=== PATIENT | male | born 1950 | race Caucasian/White ===

== ENCOUNTER 2019-09-03 08:10 | Outpatient (CLI) | payer OTHER, SELFPAY | END 2019-09-03 08:11 | disposition home or self-care (01) | LOC: RT 08:16 | PROVIDERS: Family Provider Family Medicine; PCP Family Medicine; Visit Provider Family Medicine | DX: Z76.89 Persons encountering health services in other specified circumstances (principal) ==

== ENCOUNTER 2022-02-19 13:25 | Inpatient (IN) | payer MEDICARE, SELFPAY ==
[2022-02-19] VITALS (59 sets, daily range): BP systolic 77–173; BP diastolic 61–119; PULSE 82–132; RESP 9–29; TEMP 36.4–36.8; O2SAT 89–99; BMI 32.8
--- NOTE | 2022-02-19 14:04 | ECG_ITS ---
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 Measurements Intervals [place] Rate: 110 P: 62 SD: 168 QRS: -10 QRSD: 103 T: 124 QT: 313 QTc: 425 Interpretive Statements SINUS TACHYCARDIA ST DEVIATION AND MODERATE T-WAVE ABNORMALITY, CONSIDER LATERAL ISCHEMIA [-0.1+ mV T-WAVE IN I/aVL/V5/V6] No previous ECG available for comparison Electronically Signed On 02-19-2022 15:10:06 CDT by Yadira Grant M.D. [id number] f
--- NOTE | 2022-02-19 14:09 | XR_ITS ---
WS: [id number] Exam: XR chest 1V portable [id number] Date/Time of Exam: 02/19/2022 2:09 PM Reason For Exam: cp Comparison 01/11/2008. There is cardiac enlargement with pulmonary vascular congestion suggesting acute CHF. There are areas of plaque atelectasis noted in both lungs. No pleural effusion. Signs of previous CABG surgery. Tiffany onal bony elements are intact. The mediastinal silhouette is unremarkable for technique. XR/XR chest 1V portable [id number] IMPRESSION: 1. Cardiac enlargement with pulmonary vascular congestion suggesting CHF.
--- NOTE | 2022-02-19 14:25 | CT_ITS ---
WS: [id number] CT CHEST ANGIOGRAPHY WITH REFORMATS HISTORY: chest pain, severe TECHNIQUE: Contiguous axial images are obtained through the chest during arterial injection of intrav enous contrast. Images are reconstructed to evaluate the pulmonary arteries. MIP imaging also reviewe d. All CT scans at [facility] use at least one of these dose optimization techniques: automat ed exposure control; mA and/or kV adjustment per patient size (includes targeted exams where dose is matched to clinical indication); or iterative reconstruction. CONTRAST: Omnipaque 350; 90 mL IV. DLP: 759.37 mGy.cm COMPARISON: None available. Adequate opacification of the central pulmonary arteries. No central pulmonary embolism. Beyond the s egmental branches the opacification is limited due to airspace disease. Marked enlargement of the LEF T heart chambers. Mild atherosclerosis aorta. Prior CABG. Extensive breathing motion artifact. Bilateral groundglass attenuation and consolidations. Consolidat ions are greatest at the lung bases. No pneumothorax. Small, mediastinal and hilar lymph nodes. Tricuspid regurgitation into the proximal hepatic veins. Mi ld bilateral perinephric stranding is probably chronic. No osseous destruction. CT/CT angio chest PE protcl [id number] IMPRESSION: 1. No pulmonary embolism. 2. Diffuse bilateral pulmonary opacifications. Pneumonitis and pulmonary vascu lar congestion within the differential. 3. Markedly enlarged LEFT heart chambers. 4. Prior CABG.
--- NOTE | 2022-02-19 14:28 | ECG_ITS ---
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 Measurements Intervals [place] Rate: 117 P: 47 MD: 189 QRS: -15 QRSD: 114 T: 131 QT: 307 QTc: 430 Interpretive Statements SINUS TACHYCARDIA MODERATE INTRAVENTRICULAR CONDUCTION DELAY [110+ ms QRS DURATION] ST DEVIATION AND MODERATE T-WAVE ABNORMALITY, CONSIDER LATERAL ISCHEMIA [-0.1+ mV T-WAVE IN I/aVL/V5/V6] No previous ECG available for comparison Electronically Signed On 02-19-2022 15:09:33 CDT by Yadira Grant M.D. [id number]
[2022-02-19] MEDS: diphenhydrAMINE 50 mg/mL SDV 1mL IVP (14:34)
--- NOTE | 2022-02-19 14:37 | W.ED.GENADLT ---
HPI - General Adult General: Chief complaint: Chest Pain Stated complaint: Chest pains, Stomach pains Time Seen by Provider: 02/19/22 14:10 History of Present Illness: Patient is a 71-year-old male with history of extensive CAD presenting to the emergency room with complaints of chest pain for the last 3 days. Patient tells me that he has been having intermittent chest pain has not acutely worsened in the last 3 days. In addition patient reports cough and shortness of breath. Patient denies any fever/chills, body ache, diarrhea melena hematochezia. No complaints of abdominal pain. Onset:3 days ago Duration:3 days Location:home Severity:moderate Associated symptoms: Reports chest pain and dyspnea; Deny nausea, rash, palpitations or vomiting Review of Systems Const: Denies: fever(s) or chills Eyes: Denies: change in vision ENMT: Denies: mouth pain Card: Reports: chest pain; Denies: palpitations Resp: Reports: dyspnea and non-productive cough GI: Denies: abdominal pain, nausea, vomiting or diarrhea : Denies: dysuria Musc: Denies: extremity pain Skin/Breast: Denies: rash or new lesions Neuro: Denies: weakness in extremities Psych: Reports: other (Normal mood) Chirag/Lymph: Denies: easy bruising PFSH ED PFSH: Medical History (Updated 02/19/22 @ 15:30 by Yohan Burch MD) CAD (coronary artery disease) Social History (Updated 02/19/22 @ 14:40 by Yohan Burch MD) Smoking and tobacco status: current every day smoker Alcohol intake: never Substance/Drug Use: never Physical Exam Const: COMMON NORMALS: alert HENMT: COMMON NORMALS: atraumatic HEAD & SCALP: atraumatic MOUTH: moist mucous membranes not abnormal Eye: COMMON NORMALS: EOMs intact bilaterally and conjunctivae normal CONJUNCTIVA: Yes conjunctivae normal Neck/C-Spine: COMMON NORMALS: full ROM and supple Resp: OTHER: + Coarse breath sounds with fine crackles bilaterally throughout the lung stein, mild increased work of breathing Cardio: RATE: tachycardic GI: COMMON NORMALS: Soft to palpation and non-tender PALPATION: Yes Soft to palpation OTHER: +Abdominal distension. No focal TTP. NO guarding rebound, guarding, rigidity. No CVA tenderness to percussion. Neg Encarnacion/Neg McBurney's point tenderness, no suprabupic tenderness to palpation. Extremity: COMMON NORMALS: full ROM OTHER: 1+ lower extremity edema bilaterally Neuro: SENSORIUM/ORIENTATION: Yes alert MOTOR EXAM: No Abnormal motor strength present and Other motor observations present (no focal motor deficits) Psych: COMMON NORMALS: speech normal SPEECH: Yes normal speech MOOD & AFFECT: Yes euthymic mood Course Vital Signs: Vital signs: Vital Signs Temperature 98.2 F 02/19/22 13:35 Pulse Rate 123 H 02/19/22 15:45 Respiratory Rate 18 02/19/22 15:45 Blood Pressure 98/74 02/19/22 15:45 Pulse Oximetry 96 02/19/22 15:45 Oxygen Delivery Me thod 02/19/22 15:20 Fraction of Inspir ed Oxygen 80 02/19/22 15:20 MDM - General Adult Medical Decision Making 71-year-old male with history of CHF, CAD with recent stent from 1 month ago presenting to the emergency room for evaluation of acute shortness of breath and chest pain for last 3 days. On physical exam, patient was noted to be satting at 88% on room air. No prior use of oxygen. Patient has coarse diffuse crackles throughout the lung stein and 1+ b/l lower EXTR edema consistent with CHF exacerbation. Given tachycardia and hypoxemia, decision was made to evaluate for pulmonary embolism. Shortly after getting a CTA, patient was noted to be in severe respiratory distress with heart rate in the 140s. Patient has significant increased work of breathing. We suspect the patient went into flash pulmonary edema from the contrast study. CTA is negative for any signs of large PE. COVID antigen negative. Patient was placed on BiPAP and a nitro drip. Patient received 100 mg of Lasix. Patient reports feeling significantly improved. Troponin of 98. proBNP of 2487. I discussed case with Dr. Thompson who will evaluate patient at bedside. Disposition: ICU Lab Data : 02/19/22 14:23 02/19/22 14:23 Radiology Impressions Chest X-Ray 02/19/22 14:09 IMPRESSION: 1. Cardiac enlargement with pulmonary vascular congestion suggesting CHF. Chest CTA 02/19/22 14:25 IMPRESSION: 1. No pulmonary embolism. 2. Diffuse bilateral pulmonary opacifications. Pneumonitis and pulmonary vascular congestion within the differential. 3. Markedly enlarged LEFT heart chambers. 4. Prior CABG. Laboratory Results WBC 17.1 10^3/uL (4.0-10.0) H 02/19/22 14: RBC 5.59 10^6/uL (4.1-5.3) H 02/19/22 14:23 Hgb 16.0 g/dL (11.7-16.6) 02/19/22 14:23 Hct 47.6 % (42.0-52.0) 02/19/22 14:23 MCV 85.2 fl (80-94) 02/19/22 14:23 MCH 28.6 pg (28.0-34.0) 02/19/22 14: MCHC 33.6 g/dL (30.0-36.0) 02/19/22 14: RDW 13.2 % (12.1-15.1) 02/19/22 14: Plt Count 369 10^3/cmm (130-400) 02/19/22 14:23 MPV 9.4 fL (7.4-10.4) 02/19/22 14:23 Neut % (Auto) 80.5 % 02/19/22 14:23 Lymph % (Auto) 11.6 % 02/19/22 14:23 Alcorn % (Auto) 5.9 % 02/19/22 14:23 Eos % (Auto) 0.7 % 02/19/22 14:23 Baso % (Auto) 0.8 % 02/19/22 14:23 Neut # (Auto) 13.72 10^3/uL (1.8-7.7) H 02/19/22 14:23 Lymph # (Auto) 2.0 10^3/uL (0.8-4.8) 02/19/22 14:23 Alcorn # (Auto) 1.0 10^3/uL (0.2-0.9) H 02/19/22 14:23 Eos # (Auto) 0.1 10^3/uL (0.0-0.8) 02/19/22 14:23 Baso # (Auto) 0.1 10^3/uL (0.0-0.1) 02/19/22 14:23 Nucleated RBC % (auto) 0 % 02/19/22 14:23 Nucleated RBCs # 0.0 /100WBC 02/19/22 14:23 D-Dimer 0.57 ug/mIFEU (0-0.59) 02/19/22 14:23 Sodium 130 mmol/L (136-145) L 02/19/22 14:23 Potassium 4.2 mmol/L (3.5-5.1) 02/19/22 14:23 Chloride 93 mmol/L (98-107) L 02/19/22 14:23 Carbon Dioxide 21 mmol/L (22-29) L 02/19/22 14:23 Anion Gap 20.2 (5-19) H 02/19/22 14:23 BUN 16 mg/dL (8-23) 02/19/22 14:23 Creatinine 0.9 mg/dL (0.7-1.2) 02/19/22 14:23 GFR Calculation 83.7 mL/min (90-130) L 02/19/22 14:23 Glucose 225 mg/dL (65-115) H 02/19/22 14:23 Calculated Osmolality 278 mOsm/kg (285-295) L 02/19/22 14:23 Calcium 9.6 mg/dL (8.5-10.5) 02/19/22 14:23 Total Bilirubin 0.5 mg/dL (0.15-1.2) 02/19/22 14:23 AST 20 U/L (0-40) 02/19/22 14:23 ALT 19 U/L (0-41) 02/19/22 14:23 Alkaline Phosphatase 75 IU/L (40-130) 02/19/22 14:23 Troponin T Baseline 98 ng/L (0-15) H 02/19/22 14:23 NT-Pro-B Natriuret Pep 2487 pg/mL (0-125) H 02/19/22 14:23 Total Protein 7.5 g/dL (6.6-8.7) 02/19/22 14:23 Albumin 4.3 g/dL (3.5-5.2) 02/19/22 14:23 Globulin 3.2 g/dL (1.3-4.6) 02/19/22 14:23 Influenza Type A Ag Negative (Negative) 02/19/22 14:34 Influenza Type B Ag Negative (Negative) 02/19/22 14:34 SARS-CoV-2 Ag (Rapid) Negative (Negative) 02/19/22 14:34 Imaging Data Other Imaging: Radiologist's impression: [place] [address] XRay Report Signed Patient: Holden Roy Unit #: [id number] : 1950 Age/Sex: 71 / M ADM Date: 02/19/22 Loc: ER Room/Bed: Attending Dr: Ordering Provider/Ordering MD: Bentley Barksdale MD Date of Service: 02/19/22 Procedure(s): XR chest 1V portable [id number] Accession Number(s): [id number] Report Number: [id number] WS: [id number] Exam: XR chest 1V portable [id number] Date/Time of Exam: 02/19/2022 2:09 PM Reason For Exam: cp Comparison 01/11/2008. There is cardiac enlargement with pulmonary vascular congestion suggesting acute CHF. There are areas of plaque atelectasis noted in both lungs. No pleural effusion. Signs of previous CABG surgery. Regional bony elements are intact. The mediastinal silhouette is unremarkable for technique. XR/XR chest 1V portable [id number] IMPRESSION: 1. Cardiac enlargement with pulmonary vascular congestion suggesting CHF. ? Dictated By: Jordan Arevalo DO Signed By: Jordan Arevalo DO Signed Date/Time: 02/19/22 1443 DD/ [address] [place] [address] CT Scan Report Signed Patient: Holden Roy Unit #: [id number] : 1950 Age/Sex: 71 / M ADM Date: 02/19/22 Loc: ER Room/Bed: Attending Dr: Ordering Provider/Ordering MD: Yohan Burch MD Date of Service: 02/19/22 Procedure(s): CT angio chest PE protcl [id number] Accession Number(s): [id number] Report Number: [id number] WS: [id number] CT CHEST ANGIOGRAPHY WITH REFORMATS HISTORY: chest pain, severe TECHNIQUE: Contiguous axial images are obtained through the chest during arterial injection of intravenous contrast. Images are reconstructed to evaluate the pulmonary arteries. MIP imaging also reviewed.? All CT scans at [facility] use at least one of these dose optimization techniques: automated exposure control; mA and/or kV adjustment per patient size (includes targeted exams where dose is matched to clinical indication); or iterative reconstruction. CONTRAST: Omnipaque 350; 90 mL IV. DLP: 759.37 mGy.cm COMPARISON: None available. Adequate opacification of the central pulmonary arteries. No central pulmonary embolism. Beyond the segmental branches the opacification is limited due to airspace disease. Marked enlargement of the LEFT heart chambers. Mild atherosclerosis aorta. Prior CABG. Extensive breathing motion artifact. Bilateral groundglass attenuation and consolidations. Consolidations are greatest at the lung bases. No pneumothorax. Small, mediastinal and hilar lymph nodes. Tricuspid regurgitation into the proximal hepatic veins. Mild bilateral perinephric stranding is probably chronic. No osseous destruction. CT/CT angio chest PE protcl [id number] IMPRESSION: ? 1.? No pulmonary embolism. 2.? Diffuse bilateral pulmonary opacifications. Pneumonitis and pulmonary vascular congestion within the differential. 3.? Markedly enlarged LEFT heart chambers. 4.? Prior CABG. ? ? ? Dictated By: Hortencia Simpson DO Signed By: Hortencia Simpson DO Signed Date/Time: 02/19/22 1556 DD/ 1529 Critical Care Time Critical Care Time: Critical Care Time: Yes Total Critical Care Time: 35 Attestation: The high probability of a clinically significant, sudden or life threatening deterioration of the patient's Cardiovascular system(s) required my full and direct attention, intervention and personal management. The critical care time is as shown. This time is in addition to time spent performing any reported procedures but includes the following: [x] Data and vital sign review and interpretation [x] Patient assessment, examination and intervention [x] Documentation [x] Medication orders and management Discharge Plan Discharge Patient Disposition: Admitted As Inpatient Clinical Impression: Heart failure Condition: Stable Coding Level of Care Code ED Drilling Inspector for Aneesh Fwd Exam Comprehensive
[2022-02-19] MEDS: HYDROmorphone 1 mg/mL INJ 1 mL 0.5 MG IVP (14:44)
[2022-02-19] MEDS: aspirin 325 mg Tablet PO (14:44)
[2022-02-19 14:51] LABS: Basophils # 0.1 10^3/uL (0.0-0.1); Basophils % 0.8 %; Eosinophils # 0.1 10^3/uL (0.0-0.8); Eosinophils % 0.7 %; Hematocrit 47.6 % (42.0-52.0); Lymphocytes % 11.6 %; Mean Corpuscular HGB Conc 33.6 g/dL (30.0-36.0); Mean Corpuscular Hemoglobin 28.6 pg (28.0-34.0); Mean Corpuscular Volume 85.2 fl (80-94); Mean Platelet Volume 9.4 fL (7.4-10.4); Monocytes % 5.9 %; Neutrophils # 13.72 10^3/uL (1.8-7.7); Neutrophils % 80.5 %; Nucleated Red Blood Cells % 0 %; Platelet Count 369 10^3/cmm (130-400); Red Blood Count 5.59 10^6/uL (4.1-5.3); Red Cell Distribution Width 13.2 % (12.1-15.1); White Blood Count 17.1 10^3/uL (4.0-10.0)
[2022-02-19] MEDS: iohexol 350 mg/mL 100 mL Btl IV (14:54)
--- NOTE | 2022-02-19 15:02 | ECG_ITS ---
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 Measurements Intervals [place] Rate: 142 P: -2 KS: 119 QRS: -10 QRSD: 125 T: 100 QT: 305 QTc: 469 Interpretive Statements SINUS TACHYCARDIA WITH SHORT [place] INTERVAL, POSSIBLE ATRIAL FLUTTER MODERATE INTRAVENTRICULAR CONDUCTION DELAY [110+ ms QRS DURATION] ST ELEVATION, CONSIDER SEPTAL INJURY INTERPRETATION BASED ON A DEFAULT AGE OF 40 YEARS Compared to ECG 02/19/2022 14:28:07 ST (T wave) deviation now present T-wave abnormality no longer present Possible ischemia no longer present Electronically Signed On 02-20-2022 11:56:17 CDT by Ankit Thompson M.D. [email or web address]/[id number] f
[2022-02-19 15:05] LABS: Troponin(5th) Baseline 98 ng/L (0-15)
[2022-02-19] MEDS: nitroglycerin drip 50 MG/250 ML PREMIX 90 MG IV (15:05)
[2022-02-19] MEDS: FUROsemide 10 mg/mL SDV 10mL 100 MG IVP (15:10)
[2022-02-19 15:12] LABS: Alanine Aminotransferase 19 U/L (0-41); Albumin Level 4.3 g/dL (3.5-5.2); Alkaline Phosphatase 75 IU/L (40-130); Anion Gap 20.2 (5-19); Aspartate Amino Transferase 20 U/L (0-40); Blood Urea Nitrogen 16 mg/dL (8-23); Calcium 9.6 mg/dL (8.5-10.5); Carbon Dioxide 21 mmol/L (22-29); Chloride 93 mmol/L (98-107); D Dimer 0.57 ug/mIFEU (0-0.59); Globulin 3.2 g/dL (1.3-4.6); Glomerular Filtration Rate 83.7 mL/min (90-130); Glucose 225 mg/dL (65-115); NT Pro B Type Natriuretic Pept 2487 pg/mL (0-125); Osmolality Calculated 278 mOsm/kg (285-295); Potassium 4.2 mmol/L (3.5-5.1); Sodium 130 mmol/L (136-145); Total Bilirubin 0.5 mg/dL (0.15-1.2); Total Protein 7.5 g/dL (6.6-8.7)
--- NOTE | 2022-02-19 15:20 | PC.NURSE ---
Notified MD of Blood Pressure of 92/68.
[2022-02-19 15:29] LABS: Influenza A by IFA Negative (Negative); Influenza B by IFA Negative (Negative)
[2022-02-19 15:32] LABS: SARS Covid-2 Antigen Negative (Negative)
--- NOTE | 2022-02-19 15:40 | USCV_ITS ---
Holden Roy Age: 71 Gender: M : 1950 Exam Date: 02/19/2022 16:33 Ordering Phys: Yohan Burch MD Technologist: Samara Lyn Exam Location: [facility] Indication: FLASH PULMONARY EDEMA BP: 145 / 93 HR: 115 Rhythm: Sinus Technical Quality: Technically difficult study MEASUREMENTS (Male / Female) Normal Values 2D ECHO LV Diastolic Diameter PLAX 5.3 cm 4.2 - 5.9 / 3.9 - 5.3 cm LV Systolic Diameter PLAX 5.2 cm IVS Diastolic Thickness 1.9 cm 0.6 - 1.0 / 0.6 - 0.9 cm IVS Systolic Thickness 1.9 cm LVPW Diastolic Thickness 1.8 cm 0.6 - 1.0 / 0.6 - 0.9 cm LVPW Systolic Thickness 1.7 cm RV Chamber Size 3.4 cm LVOT Diameter 2.1 cm LV Ejection Fraction 2D Teich 6.8 % LV Ejection Fraction MOD 2C 32.3 % LV Ejection Fraction 2C AL 39.8 % LA Diameter 4.7 cm LA Width 3.6 cm LA Height 6.0 cm RA Width 4.1 cm RA Height 4.4 cm IVC Diameter 2.4 cm M-MODE Aortic Annulus Diameter 3.5 cm LA Ao Ratio MM 1.3 MV E Point Septal Separation 1.9 cm DOPPLER AV Peak Velocity 127.0 cm/s LVOT Peak Velocity 71.0 cm/s AV Area Cont Eq vti 2.1 cm squared AV Area Cont Eq pk 1.9 cm squared MV Area PHT 5.9 cm squared MV E' Velocity 53.5 cm/s Mitral E to MV E' Ratio 8.4 Mitral E to LV E' Lateral Ratio 8.1 Mitral E to LV E' Septal Ratio 8.9 TR Peak Velocity 182.5 cm/s TR Peak Gradient 13.3 mmHg TR Mean Velocity 132.8 cm/s TR Mean Gradient 8.0 mmHg TR Velocity Time Integral 44.9 cm TV Peak E Velocity 53.0 cm/s Right Atrial Pressure 8.0 mmHg Pulmonary Artery Systolic Pressu 21.3 mmHg PV Peak Velocity 91.0 cm/s RV Acceleration Time 0.1 s RV Ejection Time 0.3 s RV AcT/ET 0.4 FINDINGS Left Ventricle Study is suboptimal and technically difficult. The left ventricle is mildly enlarged. There are segmental wall motion disturbances. The apex appears akinetic. The mid anterior wall and anterior base are dyskinetic. The inferior and posterior wall are mildly hypokinetic. The lateral wall is not well seen but is at least moderately hypokinetic. The overall ejection fraction is no better than 20%. Grade 2 diastolic dysfunction. Right Ventricle Not well seen. Normal size and function. Normal right ventricular systolic pressure. Right Atrium Not well seen Left Atrium Mildly enlarged. Mitral Valve Not well seen. No obvious mitral regurgitation. Aortic Valve Not well seen. No obvious stenosis or regurgitation. Tricuspid Valve Not well seen. Pulmonic Valve Not well seen. Pericardium No pericardial effusion. Aorta Not well seen. IVC Not well seen. CONCLUSIONS Study is suboptimal and technically difficult. The left ventricle is mildly enlarged. There are segmental wall motion disturbances. The apex appears akinetic. The mid anterior wall and anterior base are dyskinetic. The inferior and posterior wall are mildly hypokinetic. The lateral wall is not well seen but is at least moderately hypokinetic. The overall ejection fraction is no better than 20%. Grade 2 diastolic dysfunction. No prior study available for comparison. Dr. Ankit Thompson MD (Electronically Signed) Final Date: 20 February 2022 07:06 S
--- NOTE | 2022-02-19 16:09 | ECG_ITS ---
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 Measurements Intervals [place] Rate: 122 P: 61 MA: 166 QRS: 1 QRSD: 111 T: 136 QT: 299 QTc: 427 Interpretive Statements SINUS TACHYCARDIA MODERATE INTRAVENTRICULAR CONDUCTION DELAY [110+ ms QRS DURATION] ST ELEVATION, CONSIDER ANTEROSEPTAL INJURY Compared to ECG 02/19/2022 15:02:32 Myocardial infarct finding now present ST (T wave) deviation still present Electronically Signed On 02-20-2022 11:59:18 CDT by Ankit Thompson M.D. [id number]
--- NOTE | 2022-02-19 16:41 | PM.HP ---
Providers/Chief Complaint Admitting Physician: Ha Duncan MD Primary Care Provider: Herrera Herzog DO Chief Complaint: Chest pains, Stomach pains History of Present Illness Holden Roy is a 71 year old male with past medical history of CAD, post CABG, PCI, hypertension, hyperlipidemia, hypothyroidism who is allergic to morphine and contrast presents to the ER today because of worsening chest pain and shortness of breath which has been ongoing for last 3 days. Today patient had episodes of nausea along with chest pain and shortness of breath so he presented to the ER. Chest pain and shortness of breath gets exacerbated on minimal exertion and has been getting worse. 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 He was admitted to the hospital last month for chest pain when he underwent cardiac angiogram and possibly balloon angioplasty. As per the patient he continued to have chest pain post balloon angioplasty so he underwent second cardiac angiogram during the same hospitalization. ER course: On presentation to the ER patient was in respiratory distress along with tachycardia for which he was first placed on nasal cannula. Patient underwent CTA evaluation after getting premedication with 125 of Solu-Medrol and [address] scan he developed acute shortness of breath after which she was brought to the ER and placed on BiPAP, nitro drip of 100 and given 100 of IV Lasix. Currently on examination patient is awake and alert, complaining of occasional chest heaviness, states breathing is better on BiPAP ventilation 20/10, nitro drip of 75 with vitals of 90 systolic heart rate running at 122 bpm awake and alert. With at bedside Review of Systems General: Reports: 10 or more systems reviewed and unremarkable except in HPI and below Const: Denies: fever(s), chills, body aches, change in appetite, change in weight, malaise, night sweats, diaphoresis, change in sleep pattern, daytime sleepiness or snoring Eyes: Denies: change in vision, blurry vision, photophobia, eye discomfort or eye discharge ENMT: Denies: throat pain, enlarged tonsils, hoarseness, mouth pain, oral sores, dry mouth, tinnitus, nasal congestion or post nasal drip Card: Denies: chest pain, palpitations, irregular heart rhythm, edema, swelling of feet/ankles, lightheadedness, syncope, pre-syncope, dyspnea on exertion, orthopnea, leg pain with exertion or acrocyanosis Resp: Denies: dyspnea, productive cough, non-productive cough, wheezing, stridor, pain on inspiration, change in phlegm color, hemoptysis or chest congestion GI: Denies: abdominal pain, nausea, vomiting, hematemesis, coffee ground emesis, dysphagia, heartburn, diarrhea, constipation, bloating, GI cramping, change in bowel habits, pain on defecation, hematochezia or melena : Denies: flank pain, difficulty urinating, dysuria, urinary frequency, urinary urgency, urinary hesitancy, urinary dribbling, difficulty starting urination, change in urine stream, nocturia or hematuria Musc: Denies: neck pain, back pain, extremity pain, joint pain, joint swelling, joint redness, joint stiffness or limited range of motion Neuro: Denies: headache(s), numbness in extremities, weakness in extremities, sensory changes, lack of coordination, difficulty walking, frequent falls, dizziness, vertigo, confusion, Slurred speech present, difficulty communicating thoughts or seizure-like activity Psych: Denies: anxiety, depression, mood swings, panic attacks, hopelessness or irritability Endo: Denies: polyuria, polydipsia, tired all the time, cold intolerance, excessive sweating, flushing or heat intolerance Chirag/Lymph: Denies: easy bruising or easy bleeding All/Imm: Denies: tongue swelling, facial swelling or acute wheezing Medications/Allergies Home Medications Medication Instructions Recorded Confirmed Last Taken Type amlodipine 5 mg tablet 5 mg PO DAILY 02/19/22 02/19/22 02/19/22 History aspirin 81 mg tablet,delayed 81 mg PO DAILY 02/19/22 02/19/22 02/19/22 History release atorvastatin 80 mg tablet 80 mg PO BEDTIME 02/19/22 02/19/22 02/18/22 History fenofibrate nanocrystallized 48 mg 48 mg PO DAILY 02/19/22 02/19/22 02/19/22 History tablet furosemide 40 mg tablet 40 mg PO DAILY 02/19/22 02/19/22 02/19/22 History insulin aspart U-100 100 unit/mL 15 unit SUBCUT TID 02/19/22 02/19/22 02/19/22 History (3 mL) subcutaneous pen (Novolog Flexpen U-100 Insulin aspart) insulin degludec 200 unit/mL (3 50 unit SUBCUT DAILY 02/19/22 02/19/22 02/19/22 History mL) subcutaneous pen (Tresiba FlexTouch U-200 insulin) isosorbide mononitrate 120 mg 120 mg PO DAILY 02/19/22 02/19/22 02/19/22 History tablet,extended release 24 hr levothyroxine 150 mcg tablet 150 mcg PO DAILY 02/19/22 02/19/22 02/19/22 History lisinopril 20 mg tablet 20 mg PO BID 02/19/22 02/19/22 02/19/22 History lorazepam 1 mg tablet 2 mg PO DAILY 02/19/22 02/19/22 02/19/22 History metformin 1,000 mg tablet 1,000 mg PO BID 02/19/22 02/19/22 02/19/22 History metoprolol tartrate 50 mg tablet 50 mg PO DAILY 02/19/22 02/19/22 02/19/22 History nitroglycerin 0.4 mg sublingual 0.4 mg sublingual Q5M PRN Chest 02/19/22 02/19/22 02/19/22 History tablet Pain potassium chloride 20 mEq 20 meq PO DAILY 02/19/22 02/19/22 02/19/22 History tablet,extended release(part/cryst) prasugrel 10 mg tablet 10 mg PO DAILY 02/19/22 02/19/22 02/19/22 History trazodone 100 mg tablet 100 mg PO DAILY 02/19/22 02/19/22 02/19/22 History Allergies Allergy/AdvReac Type Severity Reaction Status Date / Time No Known Allergies Allergy Unverified 02/19/22 16:09 PFSH Acute PFSH: Medical History (Updated 02/19/22 @ 16:49 by Ha Duncan MD) CAD (coronary artery disease) Hyperlipidemia Hypertension Insulin dependent diabetes mellitus Surgical History (Updated 02/19/22 @ 16:50 by Ha Duncan MD) History of hernia repair History of knee surgery History of thyroid surgery Status post coronary artery bypass graft Status post coronary artery stent placement Social History (Updated 02/19/22 @ 14:40 by Yohan Burch MD) Smoking and tobacco status: current every day smoker Alcohol intake: never Substance/Drug Use: never Vitals/I&O/Wt Last Vital Signs Temp 98.2 F 02/19/22 13:35 Pulse 123 H 02/19/22 15:45 Resp 18 02/19/22 15:45 BP 98/74 02/19/22 15:45 Pulse Ox 96 02/19/22 15:45 O2 Del Method 02/19/22 15:20 FiO2 80 02/19/22 15:20 02/19/22 02/19/22 02/19/22 06:59 14:59 22:59 Intake Total 51.75 / 51.75 Balance 51.75 / 51.75 Weight last 48 hrs Weight 106.594 kg Physical Exam Narrative: EXAM NARRATIVE: General: No acute distress, AO x3, cold sweats, sick appearing on BiPAP ventilation HEENT: PERRLA, pupils bilaterally equal and reactive Chest: Bilateral good air entry, fine crackles present bilaterally up to mid lungs CVS: S1-S2 regular, soft pansystolic murmur at apex, tachycardia, S3 gallop, no rubs Abdomen: Soft, nontender, no organomegaly, bowel sounds present, morbidly obese Neuro: No focal deficits, no facial deformity, AO x3, power 5/5 in all limbs Data : 02/19/22 14:23 02/19/22 14:23 A&P Assessment and plan (1) Pulmonary edema: Status: Acute (2) Non-ST elevation CO (NSTEMI): Status: Acute (3) Status post coronary artery stent placement: Status: Acute (4) Insulin dependent diabetes mellitus: Status: Acute (5) Hypertension: Status: Acute (6) LBBB (left bundle branch block): Status: Acute (7) Shortness of breath: Status: Acute (8) Chest pain: Status: Acute Plan 71-year-old gentleman past medical history of CAD, post CABG presented to the ER today with chest pain and shortness of breathfor last 3 days and acute hypoxia found to be in pulmonary edema which got worse after what sounds like an allergic reaction to contrast during CTA. Allergic reaction: Patient already given Solu-Medrol and Benadryl. Benadryl 25 mg every 6 hours as needed. Currently saturating well on BiPAP ventilation. Chest pain: Symptoms most consistent with non-ST elevation CO especially in a patient with history of CAD, post CABG Multi PCI, most recent balloon angioplasty. Baseline troponin 98. Cycle troponins. Wean down nitro drip to 25 mics keeping mean arterial pressure over 65 and patient chest pain-free. Check echocardiogram stat Aspirin 81 mg, statin, home dose of prasugrel. Metoprolol 5 mg IV every 4 hours as needed to be withheld for systolic blood pressure of less than 100 mmHg. Continue with home dose of metoprolol. Lovenox 1 mg/kg body weight every 12 hourly. Will consult cardiology for further recommendations. Hypoxia/pulmonary edema: Most likely secondary congestive heart failure. Do not have baseline EF on file. Most likely patient has congestive heart failure. Check echocardiogram as above. Villa catheterization. Fluid restriction up to 1500 cc. Already given 100 mg of IV Lasix in the ER. Strict input output charting, daily weights. Pneumonia less likely. As patient is critically sick for now start patient on IV Zosyn. Will de-escalate antibiotics rapidly. Hypertension: Goal blood pressure less than 140/90 mmHg with mean over 65. For now continue with home dose of metoprolol, Imdur. Hold off on starting home dose of amlodipine and lisinopril for now as patient got a contrast load and 100 mg of IV Lasix to prevent from going into acute kidney injury. Will uptitrate medications as per goal. Check urinalysis, bacterial antigen, drug screen, urine random lites, urine Legionella, lipid panel, MRSA swab, procalcitonin, iron panel, folate, B12. Continue chronic home medication including fenofibrate, statin, prasugrel. Left bundle branch block Hyperlipidemia Insulin-dependent type 2 diabetes mellitus: Lantus 25 units nightly. Insulin sliding scale moderate dose protocol. Analgesia: Tylenol as needed. Patient is allergic to morphine Glycemic control: Lantus 25 units, insulin sliding scale at moderate dose protocol Nutrition: Cardiac carb consistent diet CODE STATUS: Full code PUD prophylaxis: Protonix DVT prophylaxis: Full dose Lovenox will suffice as DVT prophylaxis Admit to ICU Attestations Medical Necessity Statement*: Patient requires further hospitalization for management of flash pulmonary edema, non-ST elevation CO in a gentleman with a history of CAD, post CABG Critical Care Time: The high probability of a clinically significant, sudden or life threatening deterioration of the patient's [cardiac, pulmonary] system(s) required my full and direct attention, intervention and personal management. The critical care time is as shown. This time is in addition to time spent performing any reported procedures but includes the following: [x] Data and vital sign review and interpretation [x] Patient assessment, examination and intervention [x] Documentation [x] Medication orders and management Critical Care Time (min): 60 Coding Level of Care Code Acute Manager Community for [place] Fwd Diagnoses Pulmonary edema J81.1 Non-ST elevation CO (NSTEMI) I21.4 Status post coronary artery stent placement Z95.5 Insulin dependent diabetes mellitus Hypertension I10 LBBB (left bundle branch block) I44.7 Shortness of breath R06.02 Chest pain R07.9
[2022-02-19 16:49] LABS: Procalcitonin 0.04 ng/mL (0-0.5); Thyroid Stimulating Hormone 0.03 uIU/mL (0.27-4.20); Vitamin B12 462 pg/mL (232-1245)
[2022-02-19 16:50] LABS: Folate Level 6.6 ng/mL (4.5-32.2)
[2022-02-19] MEDS: metoprolol tartrate 1 mg/1 mL SDV 5 mL 5 MG IVP (16:58)
[2022-02-19 17:00] LABS: Iron 57 ug/dL (59-158); Percent Saturation 14.7 % (20-50); Total Iron Binding Capacity 387 mcg/dl; Unsaturated Iron Binding 330 ug/dL (112-347)
--- NOTE | 2022-02-19 17:07 | P.CONIM_ITS ---
Providers/Reason For Consult Consulting Physician/Specialty*: Cardiovascular medicine Reason for Consult*: congestive heart failure, chest pain, shortness of breath Requesting Physician: Emergency room Attending Physician: Ha Duncan MD Primary Care Provider: Herrera Herzog DO History of Present Illness History of Present Illness Holden Roy is a 71 year old male who who is not followed at this facility. He receives his cardiac care at [facility] in [place]. He is a chronically ill man who had two-vessel bypass surgery in 1991. Of course we do not know any of those details. He is an insulin requiring diabetic who had been a lifelong smoker until 3 years ago when he quit. He came to the hospital today because of severe shortness of breath. He has been short of breath for least 2 days. He is also developed paroxysmal nocturnal dyspnea and orthopnea. No lower extremity edema. When he came in he was short of breath, hypoxic and in some respiratory distress. Chest x-ray revealed heart failure with cardiomegaly. Because the emergency room wanted to rule out a pulmonary embolism he was sent for CTA of hi s chest. Immediately upon returning from the CT scan he had worsening shortness of breath and acute pulmonary edema. He was placed on a BiPAP mask, started on intravenous nitroglycerin drip and given 100 mg of Lasix IV. He has had 600 mL of urine output. A Villa catheter is in place. He is improved now with less shortness of breath but still requiring a BiPAP mask. His EKG shows sinus tachycardia with T wave inversions and ST segment depression most prominently laterally. His glucose is 225. His first troponin is 98. His white blood cell count is 17.1. His BNP is 2487. COVID testing is negative. An echo was done in the emergency room. Just before the technologist finished I looked over her shoulder and his ejection fraction is 15 to 20% at best with segmental wall motion disturbances. I have not formally interpreted the echo just yet. He tells me that he was in the hospital last month at [facility] in [place] for shortness of breath and chest pain. He states that they did an angiogram. He does not know anything about his bypass grafts because he states they did not tell him anything. He states they stretched out one of my existing stents . He states that immediately after the procedure he continued to have chest pain. He states that they took him back to the catheterization laboratory but did not do anything else. He does not know anything about his heart muscle function. He takes a standard lot of cardiac medications including amlodipine, aspirin, statin, fenofibrate, Lasix, isosorbide, lisinopril, metformin, prasugrel and potassium. In the emergency room in addition to the nitroglycerin and the Lasix he received metoprolol 5 mg IV. His other problems include some degree of COPD from smoking, insulin requiring diabetes, hypertension and a surgical procedure in the past for thyroid cancer. Review of Systems Narrative: His review of systems is negative aside from the symptoms associated with the current illness. Medications/Allergies Home Medications Medication Instructions Recorded Confirmed Last Taken Type amlodipine 5 mg tablet 5 mg PO DAILY 02/19/22 02/19/22 02/19/22 History aspirin 81 mg tablet,delayed 81 mg PO DAILY 02/19/22 02/19/22 02/19/22 History release atorvastatin 80 mg tablet 80 mg PO BEDTIME 02/19/22 02/19/22 02/18/22 History fenofibrate nanocrystallized 48 mg 48 mg PO DAILY 02/19/22 02/19/22 02/19/22 History tablet furosemide 40 mg tablet 40 mg PO DAILY 02/19/22 02/19/22 02/19/22 History insulin aspart U-100 100 unit/mL 15 unit SUBCUT TID 02/19/22 02/19/22 02/19/22 History (3 mL) subcutaneous pen (Novolog Flexpen U-100 Insulin aspart) insulin degludec 200 unit/mL (3 50 unit SUBCUT DAILY 02/19/22 02/19/22 02/19/22 History mL) subcutaneous pen (Tresiba FlexTouch U-200 insulin) isosorbide mononitrate 120 mg 120 mg PO DAILY 02/19/22 02/19/22 02/19/22 History tablet,extended release 24 hr levothyroxine 150 mcg tablet 150 mcg PO DAILY 02/19/22 02/19/22 02/19/22 History lisinopril 20 mg tablet 20 mg PO BID 02/19/22 02/19/22 02/19/22 History lorazepam 1 mg tablet 2 mg PO DAILY 02/19/22 02/19/22 02/19/22 History metformin 1,000 mg tablet 1,000 mg PO BID 0702/19/22 02/19/22 History metoprolol tartrate 50 mg tablet 50 mg PO DAILY 02/19/22 02/19/22 02/19/22 History nitroglycerin 0.4 mg sublingual 0.4 mg sublingual Q5M PRN Chest 02/19/22 02/19/22 02/19/22 History tablet Pain potassium chloride 20 mEq 20 meq PO DAILY 02/19/22 02/19/22 02/19/22 History tablet,extended release(part/cryst) prasugrel 10 mg tablet 10 mg PO DAILY 02/19/22 02/19/22 02/19/22 History trazodone 100 mg tablet 100 mg PO DAILY 02/19/22 02/19/22 02/19/22 History Allergies Allergy/AdvReac Type Severity Reaction Status Date / Time No Known Allergies Allergy Unverified 02/19/22 16:09 Current Medications Generic Name Dose Route Start Last Admin Trade Name Freq PRN Reason Stop Dose Admin Nitroglycerin/Dextrose 50 mg in 250 mls @ 0 mls/hr 02/19/22 15:00 02/19/22 16:20 Nitroglycerin Drip IV 25 mcg/min .Q0M KELLIE 7.5 mls/hr Titration Protocol Per Protocol Metoprolol Tartrate 5 mg 02/19/22 16:01 02/19/22 16:58 Metoprolol Tartrate 1 Mg/1 Ml Sdv 5 Ml IVP 5 mg Q4H PRN Administration HR more than 100 bpm PFSH Acute PFSH: Medical History (Updated 02/19/22 @ 17:18 by Ankit Thompson MD) CAD (coronary artery disease) Congestive heart failure Hyperlipidemia Hypertension Insulin dependent diabetes mellitus Ischemic cardiomyopathy Surgical History (Updated 02/19/22 @ 17:18 by Ankit Thompson MD) History of hernia repair History of knee surgery History of thyroid surgery Status post coronary artery bypass graft Status post coronary artery stent placement Social History (Updated 02/19/22 @ 14:40 by Yohan Burch MD) Smoking and tobacco status: current every day smoker Alcohol intake: never Substance/Drug Use: never Vitals/I&O/Wt Last Vital Signs Temp 98.2 F 02/19/22 13:35 Pulse 128 H 02/19/22 16:00 Resp 19 H 02/19/22 16:45 BP 140/95 02/19/22 16:45 Pulse Ox 98 02/19/22 16:00 O2 Del Method 02/19/22 15:20 FiO2 80 02/19/22 15:20 02/19/22 02/19/22 02/19/22 06:59 14:59 22:59 Intake Total 57.25 / 57.25 Balance 57.25 / 57.25 Weight last 48 hrs Weight 235 lb Physical Exam Narrative: GENERAL: In general he is mildly short of breath on BiPAP HEENT: Exam within normal limits. NECK: Supple without jugular vein distention. The carotid upstroke is normal without bruits. BACK: Exam normal. LUNGS: Some moist crackles in both bases HEART: Regular rate and rhythm. ABDOMEN: Benign without organomegaly or tenderness. EXTREMITIES: No edema. NEUROLOGIC: Exam normal. SKIN: Unremarkable. Data : 02/19/22 14:23 02/19/22 14:23 A&P Assessment and plan (1) Chest pain: Status: Acute (2) Shortness of breath: Status: Acute (3) Pulmonary edema: Status: Acute (4) Status post coronary artery stent placement: Status: Acute (5) Insulin dependent diabetes mellitus: Status: Acute (6) Hyperlipidemia: Status: Acute (7) Hypertension: Status: Acute (8) Congestive heart failure: Status: Acute (9) Ischemic cardiomyopathy: Status: Acute (10) Status post coronary artery bypass graft: Status: Acute Plan This is congestive heart failure caused by an ischemic cardiomyopathy. I am guessing his ejection fraction is 15 to 20%. I will need to formally interpret the echo. His BNP is high. The first troponin is 98 but this is probably related to demand ischemia. We will follow his troponins along. EKG findings a re consistent with his being under stress associated with the heart failure. He is tachycardic with ST and T wave changes likely related to demand ischemia. He would like to have things to end up here in this hospital over the weekend to be discharged to follow-up with his regular physicians and [place]. He has an appoint with them next week. For now I would continue the IV nitroglycerin u ntil we get better control of things. I did treat him with intravenous Lasix. I would not be aggressive with IV beta-blockers until he is out of heart failure. I do not see any evidence of pneumonia on EKG but his white blood cell count is 17.1. This could be stress related as well. We will follow him along. Consult Attestations Medical Necessity Statement: ICU care for the treatment of heart failure Coding Level of Care Code New Pt Acute Ultrasound Technician for Chg Fwd Patient Type New History Comprehensive Exam Comprehensive Medical Decision Making High Complexity Diagnoses Chest pain R07.9 Shortness of breath R06.02 Pulmonary edema J81.1 Status post coronary artery stent placement Z95.5 Insulin dependent diabetes mellitus Hyperlipidemia E78.5 Hypertension I10 Congestive heart failure I50.9 Ischemic cardiomyopathy I25.5 Status post coronary artery bypass graft Z95.1
[2022-02-19 18:03] LABS: Troponin 5 2HR 194.2 ng/L (0-15)
[2022-02-19 18:08] LABS: Free T4 Free Thyroxine 2.73 ng/dL (0.82-1.77); T3 Free 2.8 PG/ML (2.0-4.4)
[2022-02-19] MEDS: enoxaparin 120 mg/0.8 mL Syringe 110 MG SUBCUT (18:19)
[2022-02-19] MEDS: piperacillin-tazobactam 3.375 GM in sodium chloride 0.9% (plus) 50 ML IV (18:20)
[2022-02-19 18:27] LABS: Glucose Point of Care 310 mg/dL (70-110)
[2022-02-19] MEDS: insulin lispro 100 unit/1 mL SUBCUT ×2 (18:31→20:48)
[2022-02-19] MEDS: ipratropium-albuterol 3 mL Neb INHALATION (20:07)
[2022-02-19] MEDS: budesonide 0.5 mg/2 mL Neb INHALATION (20:07)
--- NOTE | 2022-02-19 20:09 | ECG_ITS ---
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 Measurements Intervals [place] Rate: 93 P: 69 NC: 197 QRS: -3 QRSD: 100 T: 153 QT: 397 QTc: 495 Interpretive Statements SINUS RHYTHM POSSIBLE LEFT ATRIAL ENLARGEMENT [-0.1mV P-WAVE IN V1/V2] ST DEVIATION AND MODERATE T-WAVE ABNORMALITY, CONSIDER ANTEROLATERAL ISCHEMIA [-0.1+ mV T-WAVE IN V3-V6] Compared to ECG 02/19/2022 15:56:02 T-wave abnormality now present Possible ischemia now present Sinus tachycardia no longer present Intraventricular conduction delay no longer present ST (T wave) deviation no longer present Myocardial infarct finding no longer present Electronically Signed On 02-20-2022 12:00:13 CDT by Ankit Thompson M.D. [email or web address]
--- NOTE | 2022-02-19 20:37 | PC.NURSE ---
Bedside report received from Rosa Zamora RN
[2022-02-19 20:48] LABS: Glucose Point of Care 257 mg/dL (70-110)
--- NOTE | 2022-02-19 20:51 | PC.NURSE ---
When getting up to the commode, pt became very soa and anxious, attempting to jump up out of bed, stating, I can't breathe. I was able to calm the patient down and taught relaxation techniques. I do not feel comfortable removing BiPAP for PO meds at this time. Pt remains soa and mildly anxious.
[2022-02-19 21:35] LABS: Amphetamines Screen Urine Negative (Negative); Barbiturates Screen Urine Negative (Negative); Benzodiazepines Screen Urine Positive (Negative); Cocaine Screen Urine Negative (Negative); Opiate Screen Urine Negative (Negative); PCP Screen Urine Negative (Negative); THC Screen Urine Negative (Negative)
[2022-02-19 21:42] LABS: Potassium, Radom Urine 49 mmol/L; Urine Random Chloride 89 mmol/L; Urine Random Sodium 56 mmol/L
[2022-02-19 21:49] LABS: Troponin 5 6HR 370.9 ng/L (0-15); Troponin 5 6HR Delta 272.9 ng/L (0-12)
[2022-02-19 21:50] LABS: Add Urine Microscopic? YES; Bilirubin Urine Neg (Negative); Blood Urine 3+ (Negative); Glucose Urine UA 4+ (Normal); Ketones Urine Negative (Negative); Leukocyte Esterase Urine Negative (Negative); Nitrate Urine Negative (Negative); Protein Urine Trace (Negative); Specific Gravity, Urine 1.015 (1.005-1.030); Urine Appearance Clear (CLEAR); Urine Color Straw (Yellow); Urobilinogen Urine Neg (Negative); pH Urine 5 (5-7)
[2022-02-19 21:51] LABS: Add Urine Culture? Yes; Bacteria Urine TRACE /hpf; RBC Urine 15-25 /hpf (0-2); Squamous Epithelial Cell Urine 0-4 /hpf (0-5); WBC Urine 0-4 /hpf (0-5)
[2022-02-19] MEDS: atorvastatin 40 mg Tablet 80 MG PO (22:24)
[2022-02-19] MEDS: metoprolol tartrate 50 mg Tablet PO (22:25)
[2022-02-19] MEDS: trazodone 100 mg Tablet PO (22:25)
[2022-02-19 23:12] LABS: Basophils % 0.1 %; Hematocrit 48.6 % (42.0-52.0); Hemoglobin 15.7 g/dL (11.7-16.6); Lymphocytes # 0.9 10^3/uL (0.8-4.8); Lymphocytes % 4.6 %; Mean Corpuscular HGB Conc 32.3 g/dL (30.0-36.0); Mean Corpuscular Hemoglobin 28.3 pg (28.0-34.0); Mean Corpuscular Volume 87.7 fl (80-94); Mean Platelet Volume 9.3 fL (7.4-10.4); Monocytes # 0.8 10^3/uL (0.2-0.9); Monocytes % 3.9 %; Neutrophils # 18.57 10^3/uL (1.8-7.7); Neutrophils % 90.8 %; Nucleated Red Blood Cells % 0 %; Platelet Count 344 10^3/cmm (130-400); Red Blood Count 5.54 10^6/uL (4.1-5.3); Red Cell Distribution Width 13.2 % (12.1-15.1); White Blood Count 20.5 10^3/uL (4.0-10.0)
--- NOTE | 2022-02-19 23:20 | PC.NURSE ---
Pt placed on 4L per nasal cannula for approximately 25 minutes. Pt tolerated well. Oxygen saturation remained greater than 94%.
[2022-02-19 23:33] LABS: Alanine Aminotransferase 22 U/L (0-41); Albumin Level 4.3 g/dL (3.5-5.2); Alkaline Phosphatase 66 IU/L (40-130); Anion Gap 24.4 (5-19); Aspartate Amino Transferase 65 U/L (0-40); Blood Urea Nitrogen 21 mg/dL (8-23); Calcium 9.2 mg/dL (8.5-10.5); Carbon Dioxide 21 mmol/L (22-29); Chloride 93 mmol/L (98-107); Globulin 3.1 g/dL (1.3-4.6); Glucose 233 mg/dL (65-115); Magnesium 1.4 mg/dL (1.7-2.3); Osmolality Calculated 288 mOsm/kg (285-295); Potassium 4.4 mmol/L (3.5-5.1); Sodium 134 mmol/L (136-145); Total Bilirubin 0.4 mg/dL (0.15-1.2); Total Protein 7.4 g/dL (6.6-8.7)
--- NOTE | 2022-02-19 23:51 | PC.NURSE ---
Dr. Esquivel notified of pt's leg cramping at 2230 and 2350. She is going to ask lab to rerun chemistries. Massage used to ease pain of muscle cramping. Pt refuses SCDs due to leg cramping.
[2022-02-20] VITALS (91 sets, daily range): BP systolic 75–157; BP diastolic 37–102; PULSE 73–105; RESP 9–30; TEMP 36.6–37.2; O2SAT 90–99
--- NOTE | 2022-02-20 00:11 | PC.NURSE ---
Pt reports pain 10/10 while cramping and 0/10 when not cramping
[2022-02-20] MEDS: magnesium sulfate premix 2 GM/50 ML PIGGYBACK IV (01:02)
--- NOTE | 2022-02-20 01:29 | PC.NURSE ---
Addendum entered by Ava Valdez RN 02/20/22 01:41: 7 beat run Original Note: Pt had a 5 beat run of WCT. Pt asymptomatic. Strip placed in pt's paper chart.
[2022-02-20] MEDS: piperacillin-tazobactam 3.375 GM in sodium chloride 0.9% (plus) 50 ML IV (01:52)
--- NOTE | 2022-02-20 02:34 | PC.NURSE ---
Urine has transitioned from light pink to cloudy, rust-colored urine. Urine in tubing appears trestle builder. Villa bag and tubing emptied. There is a small blood noted around urinary meatus and on gown as well. Pt bathed and gown replaced.
--- NOTE | 2022-02-20 04:12 | PC.NURSE ---
Pt reports feeling very anxious about what will happen today. Reassurance and therapeutic communication provided. Urine remains rust colored. No bleeding noted at urinary meatus. Pt reports that his penis is very sore.
[2022-02-20 04:37] LABS: Basophils % 0.2 %; Hematocrit 43.7 % (42.0-52.0); Hemoglobin 14.7 g/dL (11.7-16.6); Lymphocytes # 1.5 10^3/uL (0.8-4.8); Lymphocytes % 7.3 %; Mean Corpuscular HGB Conc 33.6 g/dL (30.0-36.0); Mean Corpuscular Hemoglobin 28.3 pg (28.0-34.0); Mean Corpuscular Volume 84.2 fl (80-94); Mean Platelet Volume 9.8 fL (7.4-10.4); Monocytes # 1.2 10^3/uL (0.2-0.9); Monocytes % 5.5 %; Neutrophils # 18.26 10^3/uL (1.8-7.7); Neutrophils % 86.2 %; Nucleated Red Blood Cells % 0 %; Platelet Count 342 10^3/cmm (130-400); Red Blood Count 5.19 10^6/uL (4.1-5.3); Red Cell Distribution Width 13.4 % (12.1-15.1); White Blood Count 21.2 10^3/uL (4.0-10.0)
[2022-02-20 05:01] LABS: Alanine Aminotransferase 21 U/L (0-41); Alkaline Phosphatase 61 IU/L (40-130); Anion Gap 22.3 (5-19); Aspartate Amino Transferase 82 U/L (0-40); Blood Urea Nitrogen 24 mg/dL (8-23); Calcium 9.1 mg/dL (8.5-10.5); Carbon Dioxide 21 mmol/L (22-29); Chloride 95 mmol/L (98-107); Chol HDL Ratio 3.13 mg/dL (1.0-5.00); Cholesterol 122 mg/dL (0-200); Globulin 2.9 g/dL (1.3-4.6); Glucose 211 mg/dL (65-115); HDL Cholesterol 39 mg/dL (60-100); LDL Cholesterol Calculated 61 mg/dL (50-129); Osmolality Calculated 288 mOsm/kg (285-295); Potassium 4.3 mmol/L (3.5-5.1); Sodium 134 mmol/L (136-145); Total Bilirubin 0.5 mg/dL (0.15-1.2); Total Protein 6.9 g/dL (6.6-8.7); Triglycerides 110 mg/dL (0-150); VLDL Cholestrol Calculation 22 mg/dL (0-30)
[2022-02-20 05:45] LABS: Estmated Average Glucose 180; Hemoglobin A1C 7.9 % (4.0-6.0)
--- NOTE | 2022-02-20 05:45 | PC.NURSE ---
Urine appears more red in bag, but urine in tubing is yellow with small amount of blood streaking.
[2022-02-20] MEDS: enoxaparin 120 mg/0.8 mL Syringe 110 MG SUBCUT ×2 (06:06→17:32)
--- NOTE | 2022-02-20 06:12 | PC.NURSE ---
Urine in tubing now appears yellow with scant streaking of blood.
--- NOTE | 2022-02-20 07:16 | P.PN_ITS ---
Subjective Subjective: Holden is much less short of breath this morning. Yet today, after the CTA in the emergency room he was so short of breath he nearly required intubation. This probably was related to the contrast. I have reviewed his echo. He has an ejection fraction around 20%. The major wall motion disturban ce is in the anterior wall. He is also had an increase in his troponin. His first troponin was in the high 90s and the second was over 300. It is difficult to tell whether the heart failure came first causing the troponin elevation or the other way around. He did have some subtle findings of anterior ST segment elevation in leads V1 and V2 yesterday but this was when he was extremely short of breath and nearly requiring intubation. Further contrast material at that time would certainly have caused him to have respiratory failure. He states he feels much better this morning. He is off the BiPAP machine this morning. Urine output overnight is 1400 mL with a negative balance of 946 mL. He is still on intravenous nitroglycerin. Vitals/I&O/Wt Last Vital Signs Temp 99 F 02/20/22 04:00 Pulse 89 02/20/22 06:15 Resp 15 02/20/22 06:15 BP 149/92 02/20/22 06:15 Pulse Ox 92 02/20/22 06:15 O2 Del Method 02/20/22 06:15 O2 Flow Rate 2 02/20/22 06:15 FiO2 30 02/20/22 05:15 02/19/22 02/20/22 02/20/22 22:59 06:59 14:59 Intake Total 346.30 / 346.30 108 / 454.30 Output Total 1200 / 1200 200 / 1400 Balance -853.70 / -853.70 -92 / -945.70 Weight last 48 hrs Weight 241 lb 14.4 oz Weight 235 lb Physical Exam Narrative: GENERAL: In general he is much improved this morning breathing comfortably without the BiPAP machine in place HEENT: Exam within normal limits. NECK: Supple without jugular vein distention. The carotid upstroke is normal without bruits. BACK: Exam normal. LUNGS: Clear. HEART: Regular rate and rhythm. ABDOMEN: Benign without organomegaly or tenderness. EXTREMITIES: No edema. NEUROLOGIC: Exam normal. SKIN: Unremarkable. Urinary Catheter Management: Villa: Cath Placed During This Visit: yes Reason for Continuing Indwelling Catheter: Accurate Measurement of Urinary Output in Critically Ill Patients Urinary Catheter Date of Insertion: 02/19/22 Urinary Catheter Time of Insertion: 16:00 Data : 02/20/22 03:25 02/20/22 03:25 Micro: Microbiology 02/19/22 21:00 Legionella Urinary Antigen - Final Urine Catheterized A&P Assessment and plan (1) Status post coronary artery bypass graft: Status: Acute (2) Ischemic cardiomyopathy: Status: Acute (3) Congestive heart failure: Status: Acute (4) Shortness of breath: Status: Acute (5) Non-ST elevation AK (NSTEMI): Status: Acute (6) Pulmonary edema: Status: Acute (7) Status post coronary artery stent placement: Status: Acute (8) Insulin dependent diabetes mellitus: Status: Acute (9) Hyperlipidemia: Status: Acute (10) Hypertension: Status: Acute Plan I had a long discussion with him this morning and explained to him everything that happened yesterday. I told him that I was unable to give him a definitive answer as to whether the heart failure came first and the troponin elevation second or the other way around. I discussed the echocardiogram with him. I offered him coronary angiography here but he is intent upon seeing his cigar head piercer in [place]. He has declined coronary angiography here now that things have settled down. He wishes to get things compensated, be discharged and to follow-up with his cigar head piercer in [place] which is already scheduled for the next week or 2. Today I think the nitroglycerin can be weaned off. His medications should remain pretty much as prescribed upon admission. He should remain on amlodipine, statin, Lasix, isosorbide, lisinopril, prasugrel, potassium and the beta-jorge luis. The only change I would make would be to increase the Lasix to 40 mg twice daily and perhaps the potassium to 20 mEq twice daily. His other medications including the metformin, insulin and thyroid replacement should remain the same. Attestations Medical Necessity Statement*: Needs continued hospital stay for management of acute heart failure. Coding Level of Care Code Acute Head End Desizing Machine Operator for Aneesh Ojeda Diagnoses Status post coronary artery bypass graft Z95.1 Ischemic cardiomyopathy I25.5 Congestive heart failure I50.9 Shortness of breath R06.02 Non-ST elevation AK (NSTEMI) I21.4 Pulmonary edema J81.1 Status post coronary artery stent placement Z95.5 Insulin dependent diabetes mellitus Hyperlipidemia E78.5 Hypertension I10
[2022-02-20 07:39] LABS: Glucose Point of Care 264 mg/dL (70-110)
[2022-02-20] MEDS: budesonide 0.5 mg/2 mL Neb INHALATION ×2 (08:12→20:18)
[2022-02-20] MEDS: ipratropium-albuterol 3 mL Neb INHALATION ×3 (08:12→20:18)
[2022-02-20] MEDS: isosorbide mononitrate ER 60 mg Tablet 120 MG PO (08:24)
[2022-02-20] MEDS: levothyroxine 150 mcg Tablet PO (08:25)
[2022-02-20] MEDS: aspirin 81 mg EC Tablet PO (08:25)
[2022-02-20] MEDS: docusate sodium 100 mg Capsule PO ×2 (08:25→17:31)
[2022-02-20] MEDS: pantoprazole DR 40 mg Tablet PO (08:25)
[2022-02-20] MEDS: metoprolol tartrate 50 mg Tablet PO (08:25)
[2022-02-20] MEDS: insulin lispro 100 unit/1 mL SUBCUT ×4 (08:25→20:22)
[2022-02-20] MEDS: fenofibrate 48 mg Tablet PO (08:28)
[2022-02-20] MEDS: LORazepam 1 mg Tablet 2 MG PO (08:29)
[2022-02-20] MEDS: insulin glargine 100 units/1 mL 30 UNIT SUBCUT (09:57)
[2022-02-20] MEDS: FUROsemide 40 mg Tablet PO ×2 (09:57→17:31)
[2022-02-20 10:03] LABS: Troponin T (5th) Once 702 ng/L (0-15)
[2022-02-20 11:22] LABS: Glucose Point of Care 250 mg/dL (70-110)
[2022-02-20] MEDS: acetaminophen 325 mg Tablet 650 MG PO (14:38)
--- NOTE | 2022-02-20 15:52 | PC.NURSE ---
c/o increased short of breath with nitro off and up in chair.. activity back to bed. Dr Gonzalez called with orders and restarted nitro
--- NOTE | 2022-02-20 16:26 | P.PN_ITS ---
Subjective Subjective: Seen multiple times in the day today. Overnight has remained on BiPAP. Today morning on nasal cannula and then turned down to room air. Today morning was on nitro of 5 mics which was turned off later in the day at around noon. Patient started having chest heaviness 3 hours post turning off nitro drip along with difficulty in breathing. For which nitro drip had to be restarted. Patient did receive all his oral home medications. Denies any nausea, vomiting, headache. Family at bedside. Vitals/I&O/Wt Last Vital Signs Temp 98 F 02/20/22 11:30 Pulse 93 02/20/22 14:00 Resp 23 H 02/20/22 14:00 BP 136/85 02/20/22 13:00 Pulse Ox 91 02/20/22 14:00 O2 Del Method 02/20/22 13:34 O2 Flow Rate 3 02/20/22 08:00 FiO2 30 02/20/22 14:00 02/20/22 02/20/22 02/20/22 06:59 14:59 22:59 Intake Total 108 / 454.30 434.35 / 434.35 Output Total 200 / 1400 Balance -92 / -945.70 434.35 / 434.35 Weight last 48 hrs Weight 109.724 kg Weight 106.594 kg Physical Exam Narrative: EXAM NARRATIVE: General: No acute distress, AO x3, sick appearing, on room air HEENT: PERRLA, pupils bilaterally equal and reactive Chest: Bilateral good air entry, fine crackles present bilaterally up to mid lungs CVS: S1-S2 regular, soft pansystolic murmur at apex, tachycardia, S3 gallop, no rubs Abdomen: Soft, nontender, no organomegaly, bowel sounds present, morbidly obese Neuro: No focal deficits, no facial deformity, AO x3, power 5/5 in all limbs Urinary Catheter Management: Villa: Cath Placed During This Visit: yes Reason for Continuing Indwelling Catheter: Accurate Measurement of Urinary Output in Critically Ill Patients Urinary Catheter Date of Insertion: 02/19/22 Urinary Catheter Time of Insertion: 16:00 Data : 02/20/22 03:25 02/20/22 03:25 Micro: Microbiology 02/19/22 21:00 MRSA Culture - Final Nose 02/19/22 21:00 Bacterial Antigens - Final Urine Kidney 02/19/22 21:00 Legionella Urinary Antigen - Final Urine Catheterized A&P Assessment and plan (1) Pulmonary edema: Status: Acute (2) Non-ST elevation VT (NSTEMI): Status: Acute (3) Status post coronary artery stent placement: Status: Acute (4) Insulin dependent diabetes mellitus: Status: Acute (5) Hypertension: Status: Acute (6) LBBB (left bundle branch block): Status: Acute (7) Shortness of breath: Status: Acute (8) Chest pain: Status: Acute Plan 71-year-old gentleman past medical history of CAD, post CABG presented to the ER today with chest pain and shortness of breath for last 3 days and acute hypoxia found to be in pulmonary edema which got worse after what sounds like an allergic reaction to contrast during CTA. Chest pain: Symptoms most consistent with non-ST elevation VT especially in a patient with history of CAD, post CABG Multi PCI, most recent balloon angioplasty. Troponin trended up. Repeat troponin in morning more than 700 Continue with nitro drip. Appreciate echocardiogram results with a EF of 20% with regional wall motion abnormalities. Continue with home dose of aspirin, statin, prasugrel, isosorbide. Metoprolol at 75 mg twice daily. Lovenox 1 mg/kg body weight every 12 hourly as per creatinine clearance. Appreciate cardiology recommendations. 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 Given recurrence of chest discomfort on stopping minimal dose of nitro drip which is possible that patient needs cardiac angiogram sooner. Will await further recommendations. Hypoxia/pulmonary edema: Acute systolic heart failure. EF appreciated as above. Oral Lasix 40 mg twice daily. Fluid restriction up to 1500 cc. Strict input output charting, daily weights. Pneumonia less likely. As patient is critically sick for now start patient on IV Zosyn. Will de-escalate antibiotics rapidly. Hypertension: Goal blood pressure less than 140/90 mmHg with mean over 65. For now continue with home dose of metoprolol, Imdur. Hold off on starting home dose of amlodipine and lisinopril for now as patient got a contrast load and 100 mg of IV Lasix to prevent from going into acute kidney injury. Will uptitrate medications as per goal. Continue chronic home medication including fenofibrate, statin, prasugrel. Left bundle branch block Hyperlipidemia Insulin-dependent type 2 diabetes mellitus: Lantus 25 units nightly. Insulin sliding scale moderate dose protocol. Analgesia: Tylenol as needed. Patient is allergic to morphine Glycemic control: Lantus 30 units, insulin sliding scale at moderate dose protocol Nutrition: Cardiac carb consistent diet CODE STATUS: Full code PUD prophylaxis: Protonix DVT prophylaxis: Full dose Lovenox will suffice as DVT prophylaxis Guarded prognosis. Continue with ICU care. Attestations Medical Necessity Statement*: Requires further hospitalization for management of non-ST elevation VT, acute congestive heart failure Critical Care Time: The high probability of a clinically significant, sudden or life threatening deterioration of the patient's [cardiac, pulmonary] system(s) required my full and direct attention, intervention and personal management. The critical care time is as shown. This time is in addition to time spent performing any reported procedures but includes the following: [x] Data and vital sign review and interpretation [x] Patient assessment, examination and intervention [x] Documentation [x] Medication orders and management 90 Coding Level of Care Code Acute Gas Booster Engineer for [facility] Fwd Diagnoses Pulmonary edema J81.1 Non-ST elevation VT (NSTEMI) I21.4 Status post coronary artery stent placement Z95.5 Insulin dependent diabetes mellitus Hypertension I10 LBBB (left bundle branch block) I44.7 Shortness of breath R06.02 Chest pain R07.9
[2022-02-20 16:49] LABS: Glucose Point of Care 209 mg/dL (70-110)
--- NOTE | 2022-02-20 16:52 | PC.NURSE ---
nitro on at this time no further short of breath at rest. cardiology here talked with pt
[2022-02-20] MEDS: metoprolol tartrate 50 mg Tablet 75 MG PO (17:32)
[2022-02-20 20:21] LABS: Glucose Point of Care 200 mg/dL (70-110)
[2022-02-20] MEDS: trazodone 100 mg Tablet PO (20:22)
[2022-02-20] MEDS: atorvastatin 40 mg Tablet 80 MG PO (20:22)
--- NOTE | 2022-02-20 21:11 | PC.NURSE ---
Dr. Thompson notified of pt's chest discomfort and increased NTG requirements. No new orders at this time. EKG obtained. EKG is not in EMR, but has been placed on paper chart. Currently attempting to transmit EKG to EMR.
--- NOTE | 2022-02-20 21:16 | PC.NURSE ---
Pt complaining of chest and back pressure 4/10 at 2049. NTG drip increased to ease pain. Pt reports relief of chest discomfort when NTG drip at 30 mcg/min. Prior to my shift NTG was infusing at 10 mcg/min, but this was not reflected in MAR.
--- NOTE | 2022-02-20 22:01 | PC.NURSE ---
Pt resting quietly in bed with eyes closed. Respirations are even and unlabored. Pt is pink and dry. No complaints of chest pain at this time. Pt remains on NTG drip. Pt has NSR with occasional PVCs.
--- NOTE | 2022-02-20 23:21 | PC.NURSE ---
At approximately 2230, pt put his call light on. He told me, I'm not staying in this bed tonight. I can't take it, it's hurting my back. Just throw the mattress in the floor, I'm getting out of this bed. Pt was flushed and obviously restless and agitated. He became tachycardic. Pt persuaded to allow me to look for another bed. A different type of bed was located and pt was moved using an inflatable Prevalon mat. After moving patient, he developed chest pain3/10. Once patient was situated in new bed, he appeared more calm. His color normalized and his heart rate decreased. No increase in NTG was required.
[2022-02-21] VITALS (34 sets, daily range): BP systolic 102–142; BP diastolic 69–89; PULSE 85–118; RESP 13–29; TEMP 36.9–38.1; O2SAT 94–100
[2022-02-21] MEDS: LORazepam 1 mg Tablet 2 MG PO ×2 (00:05→08:21)
--- NOTE | 2022-02-21 00:35 | ECG_ITS ---
[facility] Test Date: 2022-02-21 Pat Name: Holden Roy Department: Room: ICU02 Gender: Male Educational Speech Language Clinician: : [id number] Requested By: Ha Duncan Order Number: [id number] Reading MD: Ankit Thompson M.D. Measurements Intervals [place] Rate: 113 P: 68 W[place]: 173 QRS: -18 QRSD: 95 T: 158 QT: 312 QTc: 429 Interpretive Statements SINUS TACHYCARDIA WITH OCCASIONAL SUPRAVENTRICULAR PREMATURE COMPLEXES ST DEVIATION AND MODERATE T-WAVE ABNORMALITY, CONSIDER LATERAL ISCHEMIA [-0.1+ mV T-WAVE IN I/aVL/V5/V6] INTERPRETATION BASED ON A DEFAULT AGE OF 40 YEARS Compared to ECG 02/19/2022 21:41:37 Sinus rhythm no longer present T-wave abnormality still present Possible ischemia still present Electronically Signed On 02-21-2022 10:36:03 CDT by Ankit Thompson M.D. [id number]
--- NOTE | 2022-02-21 00:57 | PC.NURSE ---
At approximately 0000, Dr. Esquivel was notified of pt's anxiety. PO Ativan was ordered. Pt called this nurse into his room at approximately 0025. Pt appeared more flushed, tachypneic, tachycardic, with chest pain 4/10. Telemetry appeared more irregular with occasional multifocal PVCs. NTG was increased and EKG was obtained. Pt was placed on BiPAP. Pt immediately began to experience decreased chest pain. His rhythm returned to sinus tachycardia at a lower rate. Pt's was notified, and she will be up to spend the night with him. Several strips showing arrhythmias have been placed on paper chart.
--- NOTE | 2022-02-21 01:45 | PC.NURSE ---
Pt resting quietly in bed with eyes closed. Pt's at bedside.
--- NOTE | 2022-02-21 02:09 | PC.NURSE ---
Pt took his own Bipap off with assistance of his . I immediately went in to his room and placed 4L via nasal cannula on patient. Education provided, and pt and his will not take his Bipap off without assistance. Pt asked for a cup of coffee. By the time I made the cup of coffee, pt had decided that he wanted to put his Bipap mask back on because of increase in chest discomfort.
--- NOTE | 2022-02-21 03:30 | PC.NURSE ---
Pt's called me into room to report that , Holden is leaving to go sleep in his bed. Pt was half way out of bed, flushed and sweaty, tachypneic, tachycardic with an irregular narrow complex rhythm. Pt had taken his bipap off. I explained to the patient and his that I genuinely think he may if he leaves this hospital by private vehicle. Pt agrees to stay, and requests that we not bother him until morning.
--- NOTE | 2022-02-21 03:33 | PC.NURSE ---
Pt pulled up and repositioned with assist of 2 people. Bipap placed back on patient.
--- NOTE | 2022-02-21 03:34 | PC.NURSE ---
Pt requests to be left alone, so no bath given.
[2022-02-21 04:09] LABS: Basophils # 0.1 10^3/uL (0.0-0.1); Basophils % 0.4 %; Eosinophils % 0.2 %; Hematocrit 40.3 % (42.0-52.0); Lymphocytes # 1.9 10^3/uL (0.8-4.8); Mean Corpuscular HGB Conc 34.7 g/dL (30.0-36.0); Mean Corpuscular Hemoglobin 28.4 pg (28.0-34.0); Mean Corpuscular Volume 81.7 fl (80-94); Mean Platelet Volume 9.8 fL (7.4-10.4); Monocytes # 1.9 10^3/uL (0.2-0.9); Monocytes % 11.2 %; Neutrophils # 12.94 10^3/uL (1.8-7.7); Neutrophils % 76.9 %; Nucleated Red Blood Cells % 0 %; Platelet Count 285 10^3/cmm (130-400); Red Blood Count 4.93 10^6/uL (4.1-5.3); Red Cell Distribution Width 13.5 % (12.1-15.1); White Blood Count 16.8 10^3/uL (4.0-10.0)
[2022-02-21] MEDS: acetaminophen 325 mg Tablet 650 MG PO (04:09)
[2022-02-21] MEDS: nitroglycerin drip 50 MG/250 ML PREMIX 12 MG IV (04:15)
[2022-02-21 04:41] LABS: Alanine Aminotransferase 22 U/L (0-41); Albumin Level 3.7 g/dL (3.5-5.2); Alkaline Phosphatase 67 IU/L (40-130); Aspartate Amino Transferase 71 U/L (0-40); Blood Urea Nitrogen 23 mg/dL (8-23); Calcium 8.4 mg/dL (8.5-10.5); Carbon Dioxide 25 mmol/L (22-29); Chloride 97 mmol/L (98-107); Globulin 2.9 g/dL (1.3-4.6); Glomerular Filtration Rate 66.4 mL/min (90-130); Glucose 199 mg/dL (65-115); Osmolality Calculated 293 mOsm/kg (285-295); Sodium 137 mmol/L (136-145); Total Bilirubin 0.6 mg/dL (0.15-1.2); Total Protein 6.6 g/dL (6.6-8.7)
[2022-02-21 04:43] LABS: Anion Gap 18.8 (5-19); Potassium 3.8 mmol/L (3.5-5.1)
--- NOTE | 2022-02-21 04:54 | PC.NURSE ---
Pt weighed on different bed than yesterday.
--- NOTE | 2022-02-21 04:54 | PC.NURSE ---
Bipap alarming at approximately 0410. Pt had taken bipap off. He had his covers off and appeared to be pulling at his henry, although he did deny this. Pt complaining of penile pain. Catheter flushed. Henry care provided. Pt found to be febrile. He was flushed and had mild tremors of his upper extremities. Acetaminophen administered.
[2022-02-21] MEDS: insulin glargine 100 units/1 mL 30 UNIT SUBCUT (05:53)
--- NOTE | 2022-02-21 07:33 | P.PN_ITS ---
Subjective Subjective: Holden had shortness of breath and chest pain yesterday when we tried to wean the nitroglycerin off. He was placed back on the nitroglycerin. While on the nitroglycerin last evening around 9:00 he had another episode of chest pain and shortness of breath. The nitroglycerin was increased to 40 mc g/min. He has been relatively stable overnight. His blood pressure is 114/77 this morning with a heart rate of 113. The rhythm is sinus tachycardia. Total urine output in the last 24 hours 3350 mL. He has a negative balance of 2600 mL. His creatinine remained stable at 1.1. When I went to talk to him today he maintains that he does not want to stay in this hospital and in actual fact has refused. He has threatened in the last 24 to 36 hours several times to sign out AMA and drive to [place] himself. The nurses and his have talked him out of that. Yesterday, he and I agreed t hat if we could get him off the nitro and it was safe to send him home we would so that he could follow-up in [place]. Now it is clear that he will not be able to do that. Therefore, I had a long conversation with him this morning about making an attempt to transfer him to [facility] which is his desire. Vitals/I&O/Wt Last Vital Signs Temp 98.7 F 02/21/22 05:51 Pulse 108 H 02/21/22 06:15 Resp 19 H 02/21/22 06:15 BP 115/89 02/21/22 06:15 Pulse Ox 96 02/21/22 06:15 O2 Del Method 02/21/22 06:15 O2 Flow Rate 3 02/21/22 06:15 FiO2 30 02/21/22 03:45 02/20/22 02/21/22 02/21/22 22:59 06:59 14:59 Intake Total 240 / 674.35 74.975 / 749.325 Output Total 2200 / 2200 1150 / 3350 Balance -1960 / -1525.65 -1075.025 / -2600.675 Weight last 48 hrs Weight 251 lb 4.8 oz Weight 241 lb 14.4 oz Weight 235 lb Physical Exam Narrative: GENERAL: In general he is comfortable this morning not on BiPAP HEENT: Exam within normal limits. NECK: Supple without jugular vein distention. The carotid upstroke is normal without bruits. BACK: Exam normal. LUNGS: Very occasional moist crackles in both bases. HEART: Regular rate and rhythm. ABDOMEN: Benign without organomegaly or tenderness. EXTREMITIES: No edema. NEUROLOGIC: Exam normal. SKIN: Unremarkable. Urinary Catheter Management: Villa: Cath Placed During This Visit: yes Reason for Continuing Indwelling Catheter: Accurate Measurement of Urinary Output in Critically Ill Patients Urinary Catheter Date of Insertion: 02/19/22 Urinary Catheter Time of Insertion: 16:00 Data : 02/21/22 03:02 02/21/22 03:02 Micro: Microbiology 02/21/22 05:39 Blood Culture - Preliminary Blood SPECIMEN COLLECTED 02/21/22 05:33 Blood Culture - Preliminary Blood SPECIMEN COLLECTED 02/19/22 21:00 MRSA Culture - Final Nose 02/19/22 21:00 Bacterial Antigens - Final Urine Kidney A&P Assessment and plan (1) Status post coronary artery bypass graft: Status: Acute (2) Ischemic cardiomyopathy: Status: Acute (3) Congestive heart failure: Status: Acute (4) Chest pain: Status: Acute (5) Non-ST elevation [place] (NSTEMI): Status: Acute (6) Shortness of breath: Status: Acute (7) Pulmonary edema: Status: Acute (8) Status post coronary artery stent placement: Status: Acute (9) Insulin dependent diabetes mellitus: Status: Acute (10) Hyperlipidemia: Status: Acute (11) Hypertension: Status: Acute Plan Just now I was able to get some information from [facility] records regarding last month's procedure. His grafts include a left internal mammary to the LAD and a vein graft to the circumflex. According to the notes the grafts were patent. He had in-stent restenosis to the LAD. This lesion was beyond the landing zone of the OSMAN graft. He underwent angioplasty of that in-stent reste nosis. I do not know what his left ventricular function was at the time. It is now clear that what happened before he came in was the stent either closed completely or has narrowed significantly causing the myocardial infarction in the anterior wall. This is the cause for the elevated troponin, the congestive heart failure, the wall motion disturbances noted on echo. Our inability to get him off nitroglycerin suggest that there may still be a lesion amenable to intervention. He would be a high risk patient. His EF is about 20%. Additionally, he went into flash pulmonary edema in the emergency room after being given contrast material for the CT scan ordered by the ER. The surgeon who works here is out of town. Finally, and probably most importantly, the patient refuses to stay here. I have put a call in to the physicians at [facility] to see about a transfer. For now we will maintain the nitroglycerin at 40 mcg/min. I had a lengthy discussion with the patient in the presence of his this morning about all of this. He prefers to be transferred and agrees with the plan. Attestations Medical Necessity Statement*: Hospitalization for myocardial infarction, acute pulmonary edema. Needs transfer to tertiary care facility for angiography and potential intervention. Coding Level of Care Code Established Pt Acute Research Associate Quality Control Qc for Aneesh Ojeda Patient Type Established History Comprehensive Exam Comprehensive Medical Decision Making High Complexity Diagnoses Status post coronary artery bypass graft Z95.1 Ischemic cardiomyopathy I25.5 Congestive heart failure I50.9 Chest pain R07.9 Non-ST elevation [place] (NSTEMI) I21.4 Shortness of breath R06.02 Pulmonary edema J81.1 Status post coronary artery stent placement Z95.5 Insulin dependent diabetes mellitus Hyperlipidemia E78.5 Hypertension I10
[2022-02-21] MEDS: ipratropium-albuterol 3 mL Neb INHALATION (07:55)
[2022-02-21] MEDS: budesonide 0.5 mg/2 mL Neb INHALATION (07:55)
[2022-02-21 07:59] LABS: Glucose Point of Care 210 mg/dL (70-110)
[2022-02-21] MEDS: metoprolol tartrate 50 mg Tablet 75 MG PO (08:18)
[2022-02-21] MEDS: pantoprazole DR 40 mg Tablet PO (08:19)
[2022-02-21] MEDS: aspirin 81 mg EC Tablet PO (08:19)
[2022-02-21] MEDS: levothyroxine 150 mcg Tablet PO (08:19)
[2022-02-21] MEDS: docusate sodium 100 mg Capsule PO (08:19)
[2022-02-21] MEDS: isosorbide mononitrate ER 60 mg Tablet 120 MG PO (08:19)
[2022-02-21] MEDS: FUROsemide 40 mg Tablet PO (08:21)
[2022-02-21] MEDS: insulin lispro 100 unit/1 mL SUBCUT (08:22)
[2022-02-21] MEDS: fenofibrate 48 mg Tablet PO (08:22)
--- NOTE | 2022-02-21 08:32 | PC.NURSE ---
continues to have some shortness of breath with activity .. Dr Thompson called [facility] for transfer for cardiac services as pt high risk
--- NOTE | 2022-02-21 09:28 | P.TS_ITS ---
Transfer Summary Providers Date of Admission: 02/19/22 16:11 Date of Discharge/Transfer: 02/21/22 Attending Provider at Admission: Ha Duncan MD Attending Provider at Transfer: Ha Duncan MD Consults: Surgery: Dr. Thompson Primary Care Provider: Herrera Herzog DO Transfer Plans: Anticipated date of transfer: 02/21/22 . Receiving Facility: [facility] . Diagnoses at Discharge Discharge Diagnosis (1) Status post coronary artery bypass graft: Status: Acute (2) Ischemic cardiomyopathy: Status: Acute (3) Congestive heart failure: Status: Acute (4) Chest pain: Status: Acute (5) Non-ST elevation FL (NSTEMI): Status: Acute (6) Shortness of breath: Status: Acute (7) Pulmonary edema: Status: Acute (8) Status post coronary artery stent placement: Status: Acute (9) Insulin dependent diabetes mellitus: Status: Acute (10) Hyperlipidemia: Status: Acute (11) Hypertension: Status: Acute Reason for Visit Reason for Visit Chest pains, Stomach pains Hospital Course Hospital Course Holden Roy is a 71 year old male with past medical history of CAD, post CABG, PCI, hypertension, hyperlipidemia, hypothyroidism who is allergic to morphine and contrast presents to the ER today because of worsening chest pain and shortness of breath which has been ongoing for last 3 days.? Today patient had episodes of nausea along with chest pain and shortness of breath so he presented to the ER.? Chest pain and shortness of breath gets exacerbated on minimal exertion and has been getting worse.? After the patient he follows up with pound attendant at [place].? He was admitted to the hospital last month for chest pain when he underwent cardiac angiogram and possibly balloon angioplasty.? As per the patient he continued to have chest pain post balloon angioplasty so he underwent second cardiac angiogram during the same hospitalization. ER course: On presentation to the ER patient was in respiratory distress along with tachycardia for which he was first placed on nasal cannula.? Patient underwent CTA evaluation after getting premedication with 125 of Solu-Medrol and 50 of Benadryl.? During CT scan he developed acute shortness of breath after which she was brought to the ER and placed on BiPAP, nitro drip of 100 and given 100 of IV Lasix. Currently on examination patient is awake and alert, complaining of occasional chest heaviness, states breathing is better on BiPAP ventilation 20/10, nitro drip of 75 with vitals of 90 systolic heart rate running at 122 bpm awake and alert.? With at bedside. Patient was admitted to the ICU for further evaluation and management. On admission patient was found to be having non-ST elevation FL along with congestive heart failure. Cardiology was consulted. He was started on medical treatment as per ACS protocol including full dose Lovenox along with nitro drip. For heart failure he was treated with IV diuresis and BiPAP ventilation. Patient responded well to the treatment and has been on baseline oxygen supplementation. Echocardiogram was done which showed an EF of around 40% with significant regional wall motion abnormality. During hospitalization patient continued to have multiple episodes of chest discomfort along with shortness of breath specially on discontinuing of nitro drip. Patient was counseled in detail regarding the need of cardiac angiogram for revascularization but he continued to deny as he wanted to have his cardiac angiogram with his outpatient pound attendant. Given recurrent episodes of chest discomfort on coming off nitro drip patient was counseled in detail for emergent need of cardiac angiogram for revascularization but he threatened to leave [place] and drive to [place] himself. Because of all the above and as our CT Sx is not available cardiology service recommended patient to be transferred. Transfer was sought to [facility] where his outpatient pound attendant is. Patient was accepted at [facility] in ICU. He was transferred on NTG of 50 and nasal cannula oxygen supplementation. Physical Exam Narrative: EXAM NARRATIVE: General: No acute distress, AO x3, sick appearing, on room air HEENT: PERRLA, pupils bilaterally equal and reactive Chest: Bilateral good air entry, fine crackles present bilaterally up to mid lungs CVS: S1-S2 regular, soft pansystolic murmur at apex, tachycardia, S3 gallop, no rubs Abdomen: Soft, nontender, no organomegaly, bowel sounds present, morbidly obese Neuro: No focal deficits, no facial deformity, AO x3, power 5/5 in all limbs Urinary Catheter Management: [place]: Cath Placed During This Visit: yes Reason for Continuing Indwelling Catheter: Accurate Measurement of Urinary Output in Critically Ill Patients Urinary Catheter Date of Insertion: 02/19/22 Urinary Catheter Time of Insertion: 16:00 TS Data Studies Completed and Pending Pending at discharge Category Date Time Status Blood Culture Routine Lab 02/21/22 05:39 Results Sputum Culture and Gram Stain Stat Lab 02/19/22 17:06 Uncollected Urine Culture Routine Lab 02/21/22 05:00 Received Labs from last 24 hours 02/21/22 02/21/22 02/21/22 07:55 03:02 03:02 WBC 16.8 H RBC 4.93 Hgb 14.0 Hct 40.3 L MCV 81.7 MCH 28.4 MCHC 34.7 RDW 13.5 Plt Count 285 MPV 9.8 Neut % (Auto) 76.9 Lymph % (Auto) 11.0 [place] % (Auto) 11.2 Eos % (Auto) 0.2 Baso % (Auto) 0.4 Neut # (Auto) 12.94 H Lymph # (Auto) 1.9 [place] # (Auto) 1.9 H Eos # (Auto) 0.0 Baso # (Auto) 0.1 Nucleated RBC % (auto) 0 Nucleated RBCs # 0.0 Sodium 137 Potassium 3.8 Chloride 97 L Carbon Dioxide 25 Anion Gap 18.8 BUN 23 Creatinine 1.1 GFR Calculation 66.4 L Glucose 199 H POC Glucose 210 H Calculated Osmolality 293 Calcium 8.4 L Total Bilirubin 0.6 AST 71 H ALT 22 Alkaline Phosphatase 67 Troponin T Gen 5 ng/L Total Protein 6.6 Albumin 3.7 Globulin 2.9 02/20/22 02/20/22 02/20/22 20:18 16:29 11:13 WBC RBC Hgb Hct MCV MCH MCHC RDW Plt Count MPV Neut % (Auto) Lymph % (Auto) [place] % (Auto) Eos % (Auto) Baso % (Auto) Neut # (Auto) Lymph # (Auto) [place] # (Auto) Eos # (Auto) Baso # (Auto) Nucleated RBC % (auto) Nucleated RBCs # Sodium Potassium Chloride Carbon Dioxide Anion Gap BUN Creatinine GFR Calculation Glucose POC Glucose 200 H 209 H 250 H Calculated Osmolality Calcium Total Bilirubin AST ALT Alkaline Phosphatase Troponin T Gen 5 ng/L Total Protein Albumin Globulin 02/20/22 03:25 WBC RBC Hgb Hct MCV MCH MCHC RDW Plt Count MPV Neut % (Auto) Lymph % (Auto) [place] % (Auto) Eos % (Auto) Baso % (Auto) Neut # (Auto) Lymph # (Auto) [place] # (Auto) Eos # (Auto) Baso # (Auto) Nucleated RBC % (auto) Nucleated RBCs # Sodium Potassium Chloride Carbon Dioxide Anion Gap BUN Creatinine GFR Calculation Glucose POC Glucose Calculated Osmolality Calcium Total Bilirubin AST ALT Alkaline Phosphatase Troponin T Gen 5 ng/L 702 H* Total Protein Albumin Globulin Completed Studies During Hospitalization Category Date Time Status CTA chest [CT angio chest PE protcl [id number]] Urgent Cat Scan 02/19/22 14:25 Completed XR chest 1V portable [id number] Stat Exams 02/19/22 14:09 Completed CV. echo complete* [id number] Stat Ultrasound 02/19/22 15:40 Completed Laboratory Last Values WBC 16.8 10^3/uL (4.0-10.0) H 02/21/22 03:02 RBC 4.93 10^6/uL (4.1-5.3) 02/21/22 03:02 Hgb 14.0 g/dL (11.7-16.6) 02/21/22 03:02 Hct 40.3 % (42.0-52.0) L 02/21/22 03:02 MCV 81.7 fl (80-94) 02/21/22 03:02 MCH 28.4 pg (28.0-34.0) 02/21/22 03:02 MCHC 34.7 g/dL (30.0-36.0) 02/21/22 03:02 RDW 13.5 % (12.1-15.1) 02/21/22 03:02 Plt Count 285 10^3/cmm (130-400) 02/21/22 03:02 MPV 9.8 fL (7.4-10.4) 02/21/22 03:02 Neut % (Auto) 76.9 % 02/21/22 03:02 Lymph % (Auto) 11.0 % 02/21/22 03:02 [place] % (Auto) 11.2 % 02/21/22 03:02 Eos % (Auto) 0.2 % 02/21/22 03:02 Baso % (Auto) 0.4 % 02/21/22 03:02 Neut # (Auto) 12.94 10^3/uL (1.8-7.7) H 02/21/22 03:02 Lymph # (Auto) 1.9 10^3/uL (0.8-4.8) 02/21/22 03:02 [place] # (Auto) 1.9 10^3/uL (0.2-0.9) H 02/21/22 03:02 Eos # (Auto) 0.0 10^3/uL (0.0-0.8) 02/21/22 03:02 Baso # (Auto) 0.1 10^3/uL (0.0-0.1) 02/21/22 03:02 Nucleated RBC % (auto) 0 % 02/21/22 03:02 Nucleated RBCs # 0.0 /100WBC 02/21/22 03:02 D-Dimer 0.57 ug/mIFEU (0-0.59) 02/19/22 14:23 Sodium 137 mmol/L (136-145) 02/21/22 03:02 Potassium 3.8 mmol/L (3.5-5.1) 02/21/22 03:02 Chloride 97 mmol/L (98-107) L 02/21/22 03:02 Carbon Dioxide 25 mmol/L (22-29) 02/21/22 03:02 Anion Gap 18.8 (5-19) 02/21/22 03:02 BUN 23 mg/dL (8-23) 02/21/22 03:02 Creatinine 1.1 mg/dL (0.7-1.2) 02/21/22 03:02 GFR Calculation 66.4 mL/min (90-130) L 02/21/22 03:02 Glucose 199 mg/dL (65-115) H 02/21/22 03:02 POC Glucose 210 mg/dL (70-110) H 02/21/22 07:55 Estimat Average Glucose 180 02/20/22 03:25 Hemoglobin A1c 7.9 % (4.0-6.0) H 02/20/22 03:25 Calculated Osmolality 293 mOsm/kg (285-295) 02/21/22 03:02 Calcium 8.4 mg/dL (8.5-10.5) L 02/21/22 03:02 Magnesium 1.4 mg/dL (1.7-2.3) L 02/19/22 22:50 Iron 57 ug/dL (59-158) L 02/19/22 14:23 TIBC 387 mcg/dl 02/19/22 14:23 % Saturation 14.7 % (20-50) L 02/19/22 14:23 Unsat Iron Binding 330 ug/dL (112-347) 02/19/22 14:23 Total Bilirubin 0.6 mg/dL (0.15-1.2) 02/21/22 03:02 AST 71 U/L (0-40) H 02/21/22 03:02 ALT 22 U/L (0-41) 02/21/22 03:02 Alkaline Phosphatase 67 IU/L (40-130) 02/21/22 03:02 Troponin T Gen 5 ng/L 702 ng/L (0-15) H* 02/20/22 03:25 Troponin T Baseline 98 ng/L (0-15) H 02/19/22 14:23 Troponin T 120 Minute 194.2 ng/L (0-15) H 02/19/22 16:37 Delta Troponin T 96.2 ABS# (0-10) H* 02/19/22 16:37 Troponin T Hi Sens 6Hr 370.9 ng/L (0-15) H 02/19/22 21:00 Troponin T Hi Sens 6Hr Delta 272.9 ng/L (0-12) H* 02/19/22 21:00 NT-Pro-B Natriuret Pep 2487 pg/mL (0-125) H 02/19/22 14:23 Total Protein 6.6 g/dL (6.6-8.7) 02/21/22 03:02 Albumin 3.7 g/dL (3.5-5.2) 02/21/22 03:02 Globulin 2.9 g/dL (1.3-4.6) 02/21/22 03:02 Triglycerides 110 mg/dL (0-150) 02/20/22 03:25 Cholesterol 122 mg/dL (0-200) 02/20/22 03:25 LDL Cholesterol, Calc 61 mg/dL (50-129) 02/20/22 03:25 Total VLDL Cholesterol 22 mg/dL (0-30) 02/20/22 03:25 HDL Cholesterol 39 mg/dL (60-100) L 02/20/22 03:25 Cholesterol/HDL Ratio 3.13 mg/dL (1.0-5.00) 02/20/22 03:25 Vitamin B12 462 pg/mL (232-1245) 02/19/22 14:23 Folate 6.6 ng/mL (4.5-32.2) 02/19/22 14:23 Procalcitonin 0.04 ng/mL (0-0.5) 02/19/22 14:23 TSH 0.03 uIU/mL (0.27-4.20) L 02/19/22 14:23 Free T4 2.73 ng/dL (0.82-1.77) H 02/19/22 14:23 Free T3 2.8 PG/ML (2.0-4.4) 02/19/22 14:23 Urine Color Straw (Yellow) 02/19/22 21:00 Urine Appearance Clear (CLEAR) 02/19/22 21:00 Urine pH 5 (5-7) 02/19/22 21:00 Ur Specific [place] 1.015 (1.005-1.030) 02/19/22 21:00 Urine Protein Trace (Negative) 02/19/22 21:00 Urine Glucose (UA) 4+ (Normal) H 02/19/22 21:00 Urine Ketones Negative (Negative) 02/19/22 21:00 Urine Blood 3+ (Negative) H 02/19/22 21:00 Urine Nitrate Negative (Negative) 02/19/22 21:00 Urine Bilirubin Neg (Negative) 02/19/22 21:00 Urine Urobilinogen Neg mg/dL (Negative) 02/19/22 21:00 Ur Leukocyte Esterase Negative (Negative) 02/19/22 21:00 Urine RBC 15-25 /hpf (0-2) H 02/19/22 21:00 Urine WBC 0-4 /hpf (0-5) H 02/19/22 21:00 Ur Squamous Epith Cells 0-4 /hpf (0-5) H 02/19/22 21:00 Amorphous Sediment Not Reportable 02/19/22 21:00 Urine Bacteria Trace /hpf (NONE) 02/19/22 21:00 Ur Random Sodium 56 mmol/L 02/19/22 21:00 Ur Random Potassium 49 mmol/L 02/19/22 21:00 Ur Random Chloride 89 mmol/L 02/19/22 21:00 Urine Opiates Screen Negative ng/mL (Negative) 02/19/22 21:00 Ur Barbiturates Screen Negative ng/mL (Negative) 02/19/22 21:00 Ur Phencyclidine Scrn Negative ng/mL (Negative) 02/19/22 21:00 Ur Amphetamines Screen Negative ng/mL (Negative) 02/19/22 21:00 U Benzodiazepines Scrn Positive ng/mL (Negative) H 02/19/22 21:00 Urine Cocaine Screen Negative ng/mL (Negative) 02/19/22 21:00 U Marijuana (THC) Screen Negative ng/mL (Negative) 02/19/22 21:00 Influenza Type A Ag Negative (Negative) 02/19/22 14:34 Influenza Type B Ag Negative (Negative) 02/19/22 14:34 SARS-CoV-2 Ag (Rapid) Negative (Negative) 02/19/22 14:34 Radiology Impressions Chest X-Ray 02/19/22 14:09 IMPRESSION: 1. Cardiac enlargement with pulmonary vascular congestion suggesting CHF. Chest CTA 02/19/22 14:25 IMPRESSION: 1. No pulmonary embolism. 2. Diffuse bilateral pulmonary opacifications. Pneumonitis and pulmonary vascular congestion within the differential. 3. Markedly enlarged LEFT heart chambers. 4. Prior CABG. Echocardiogram: CONCLUSIONS ?Study is suboptimal and technically difficult.? The left?ventricle is mildly enlarged.? There are segmental wall motion?disturbances.? The apex appears akinetic.? The mid anterior wall ?and anterior base are dyskinetic.? The inferior and posteriorwall are mildly hypokinetic.? The lateral wall is not well seen?but is at least moderately hypokinetic.? The overall ejection?fraction is no better than 20%.? Grade 2 diastolic dysfunction.?No prior study available for comparison. ?Dr. Ankit Thompson MD ?(Electronically Signed) ?Final Date:? ? ? 20 February 2022 ? 07:06 Recent Clincial Data Last Vital Signs Temp 98.7 F 02/21/22 05:51 Pulse 113 H 02/21/22 08:00 Resp 17 02/21/22 08:00 BP 125/81 02/21/22 07:00 Pulse Ox 98 02/21/22 08:00 O2 Del Method 02/21/22 08:00 O2 Flow Rate 3 02/21/22 08:00 FiO2 30 02/21/22 08:00 Vital Signs Temp Pulse Resp BP Pulse Ox O2 Del Method O2 Flow Rate 02/21/22 08:00 113 H 17 98 02/21/22 07:00 110 H 29 H 125/81 95 02/21/22 08:00 02/21/22 08:00 87 18 97 Nasal Cannula 3 02/21/22 06:15 108 H 19 H 115/89 96 Nasal Cannula 3 02/21/22 06:00 110 H 21 H 115/81 95 Nasal Cannula 3 02/21/22 05:45 111 H 24 H 96 Nasal Cannula 3 02/21/22 05:30 110 H 20 H 111/81 96 Nasal Cannula 3 02/21/22 05:15 106 H 26 H 119/84 95 Nasal Cannula 3 02/21/22 05:00 114 H 24 H 120/79 96 Nasal Cannula 3 02/21/22 04:45 115 H 22 H 111/81 95 Nasal Cannula 3 02/21/22 04:30 117 H 17 113/74 98 Nasal Cannula 3 02/21/22 04:15 114 H 22 H 104/79 94 Nasal Cannula 3 02/21/22 04:00 118 H 22 H 128/87 99 Nasal Cannula 3 02/21/22 05:51 98.7 F 02/21/22 05:37 115 H 02/21/22 04:00 100.6 F H 02/21/22 03:45 112 H 15 117/88 99 BiPAP 02/21/22 03:30 116 H 15 102/72 99 BiPAP 02/21/22 03:15 111 H 17 119/73 97 BiPAP 02/21/22 03:00 113 H 23 H 132/87 98 BiPAP 02/21/22 02:45 114 H 24 H 135/83 100 BiPAP 02/21/22 02:30 112 H 24 H 133/84 94 BiPAP 02/21/22 03:27 114 H 99 02/21/22 02:15 110 H 18 134/72 97 BiPAP 02/21/22 02:00 110 H 18 125/69 95 BiPAP 02/21/22 01:45 107 H 21 H 111/71 02/21/22 01:30 109 H 17 129/77 97 BiPAP 02/21/22 01:15 110 H 17 122/82 98 BiPAP 02/21/22 01:00 108 H 15 129/82 98 BiPAP 02/21/22 00:45 111 H 19 H 141/86 98 BiPAP 02/21/22 00:30 115 H 20 H 140/82 98 BiPAP 02/21/22 00:15 102 H 19 H 138/84 95 Nasal Cannula 3 02/21/22 00:00 99 22 H 142/81 97 Nasal Cannula 3 02/20/22 23:45 105 H 17 134/82 96 Nasal Cannula 3 02/20/22 23:30 103 H 18 131/85 99 Nasal Cannula 3 02/21/22 00:00 98.4 F 02/20/22 23:15 97 16 131/85 97 Nasal Cannula 3 02/20/22 23:00 98 17 121/88 97 Nasal Cannula 3 02/20/22 22:45 100 20 H 147/86 97 Nasal Cannula 3 02/20/22 22:30 105 H 20 H 130/85 99 Nasal Cannula 3 02/20/22 22:15 97 19 H 134/85 98 Nasal Cannula 3 02/20/22 22:00 99 02/20/22 22:00 98 22 H 139/83 96 Nasal Cannula 3 02/20/22 21:45 99 21 H 132/83 96 Nasal Cannula 3 02/20/22 21:30 102 H 25 H 131/84 96 Nasal Cannula 3 FiO2 02/21/22 08:00 02/21/22 07:00 02/21/22 08:00 02/21/22 08:00 02/21/22 06:15 02/21/22 06:00 02/21/22 05:45 02/21/22 05:30 02/21/22 05:15 02/21/22 05:00 02/21/22 04:45 02/21/22 04:30 02/21/22 04:15 02/21/22 04:00 02/21/22 05:51 02/21/22 05:37 02/21/22 04:00 02/21/22 03:45 02/21/22 03:30 02/21/22 03:15 02/21/22 03:00 02/21/22 02:45 30 02/21/22 02:30 30 02/21/22 03:27 02/21/22 02:15 02/21/22 02:00 02/21/22 01:45 02/21/22 01:30 30 02/21/22 01:15 02/21/22 01:00 30 02/21/22 00:45 30 02/21/22 00:30 30 02/21/22 00:15 02/21/22 00:00 02/20/22 23:45 02/20/22 23:30 02/21/22 00:00 02/20/22 23:15 02/20/22 23:00 02/20/22 22:45 02/20/22 22:30 02/20/22 22:15 02/20/22 22:00 02/20/22 22:00 02/20/22 21:45 02/20/22 21:30 Intake & Output/Weight 02/19/22 02/20/22 02/21/22 02/22/22 06:59 06:59 06:59 06:59 Intake Total 454.30 / 454.30 749.325 / 749.325 50 / 50 Output Total 1400 / 1400 3350 / 3350 Balance -945.70 / -945.70 -2600.675 / -2600.675 50 / 50 Weight 109.724 kg 113.988 kg Vitals Last Vital Signs Temp 98.7 F 02/21/22 05:51 Pulse 113 H 02/21/22 08:00 Resp 17 02/21/22 08:00 BP 125/81 02/21/22 07:00 Pulse Ox 98 02/21/22 08:00 O2 Del Method 02/21/22 08:00 O2 Flow Rate 3 02/21/22 08:00 FiO2 30 02/21/22 08:00 TS Medications Medications Acetaminophen (Acetaminophen 325 Mg Tablet) 650 mg PO Q6H PRN PRN Reason: MILD PAIN Last Admin: 02/21/22 04:09 Dose: 650 mg Albuterol/Ipratropium (Ipratropium-Albuterol 3 Ml Neb) 3 ml INHALATION Q6H PRN PRN Reason: SHORTNESS OF BREATH Last Admin: 02/21/22 07:55 Dose: 3 ml Aspirin (Aspirin 81 Mg Ec Tablet) 81 mg PO DAILY KELLIE Last Admin: 02/21/22 08:19 Dose: 81 mg Atorvastatin Calcium (Atorvastatin 40 Mg Tablet) 80 mg PO BEDTIME KELLIE Last Admin: 02/20/22 20:22 Dose: 80 mg Budesonide (Budesonide 0.5 Mg/2 Ml Neb) 0.5 mg INHALATION BID.RESPIRATORY KELLIE Last Admin: 02/21/22 07:55 Dose: 0.5 mg Dextrose (Dextrose 50% Syringe 50 Ml) 25 ml IVP ONCE PRN; Protocol PRN Reason: hypoglycemia protocol Dextrose (Dextrose 50% Syringe 50 Ml) 50 ml IVP PRN PRN; Protocol PRN Reason: hypoglycemia protocol Docusate Sodium (Docusate Sodium 100 Mg Capsule) 100 mg PO BID [facility] Last Admin: 02/21/22 08:19 Dose: 100 mg Enoxaparin Sodium (Enoxaparin 120 Mg/0.8 Ml Syringe) 110 mg SUBCUT Q12H KELLIE Last Admin: 02/20/22 17:32 Dose: 110 mg Fenofibrate (Fenofibrate 48 Mg Tablet) 48 mg PO DAILY [facility] Last Admin: 02/21/22 08:22 Dose: 48 mg Furosemide (Furosemide 40 Mg Tablet) 40 mg PO BID@08,16 [facility] Last Admin: 02/21/22 08:21 Dose: 40 mg Glucagon (Glucagon 1 Mg/Ml Inj 1 Ml) 1 mg IM ONCE PRN; Protocol PRN Reason: Adult Acute Hypoglycemia Prot. Nitroglycerin/Dextrose (Nitroglycerin Drip) 50 mg in 250 mls @ 0 mls/hr IV .Q0M [facility]; Protocol Last Admin: 02/21/22 04:15 Dose: 40 mcg/min, 12 mls/hr Dextrose (D5w) 500 mls @ 100 mls/hr IV ONCE PRN; Protocol PRN Reason: Adult Acute Hypoglycemia Prot Insulin Glargine (Insulin Glargine 100 Units/1 Ml) 30 unit SUBCUT QAM [facility] Last Admin: 02/21/22 05:53 Dose: 30 unit Insulin Human Lispro (Insulin Lispro 100 Unit/1 Ml) 0 unit SUBCUT WM&BEDTIME [facility]; Protocol Last Admin: 02/21/22 08:22 Dose: 8 unit Isosorbide Mononitrate (Isosorbide Mononitrate Er 60 Mg Tablet) 120 mg PO DAILY [facility] Last Admin: 02/21/22 08:19 Dose: 120 mg Levothyroxine Sodium (Levothyroxine 150 Mcg Tablet) 150 mcg PO DAILY [facility] Last Admin: 02/21/22 08:19 Dose: 150 mcg Lorazepam (Lorazepam 1 Mg Tablet) 2 mg PO DAILY [facility] Last Admin: 02/21/22 08:21 Dose: 2 mg Metoprolol Tartrate (Metoprolol Tartrate 1 Mg/1 Ml Sdv 5 Ml) 5 mg IVP Q4H PRN PRN Reason: HR more than 100 bpm Last Admin: 02/19/22 16:58 Dose: 5 mg Metoprolol Tartrate (Metoprolol Tartrate 50 Mg Tablet) 75 mg PO BID [facility] Last Admin: 02/21/22 08:18 Dose: 75 mg Nitroglycerin (Nitroglycerin 0.4 Mg Sublingual Tablet) 0.4 mg SUBLINGUAL Q5M PRN PRN Reason: CHEST PAIN Non-Formulary Medication Prasugrel 10 Mg 1 each PO DAILY [facility] Last Admin: 02/21/22 08:26 Dose: Not Given Ondansetron HCl (Ondansetron 2 Mg/Ml Sdv 2 Ml) 4 mg IVP Q6H PRN PRN Reason: NAUSEA AND VOMITING Pantoprazole Sodium (Pantoprazole Dr 40 Mg Tablet) 40 mg PO DAILY [facility] Last Admin: 02/21/22 08:19 Dose: 40 mg Trazodone HCl (Trazodone 100 Mg Tablet) 100 mg PO BEDTIME [facility] Last Admin: 02/20/22 20:22 Dose: 100 mg Discontinued Medications Aspirin (Aspirin 325 Mg Tablet) 325 mg PO ONCE ONE Stop: 02/19/22 14:38 Last Admin: 02/19/22 14:44 Dose: 325 mg Budesonide (Budesonide 0.5 Mg/2 Ml Neb) 0.5 mg INHALATION BID.RESPIRATORY KELLIE Diphenhydramine HCl (Diphenhydramine 50 Mg/Ml Sdv 1ml) 50 mg IVP ONCE ONE Stop: 02/19/22 14:30 Last Admin: 02/19/22 14:34 Dose: 50 mg Enoxaparin Sodium (Enoxaparin 120 Mg/0.8 Ml Syringe) 110 mg SUBCUT Q12H [facility] Last Admin: 02/19/22 19:27 Dose: Not Given Furosemide (Furosemide 10 Mg/Ml Sdv 10ml) 100 mg IVP ONCE ONE Stop: 02/19/22 15:07 Last Admin: 02/19/22 15:10 Dose: 100 mg Hydromorphone HCl (Hydromorphone 1 Mg/Ml Inj 1 Ml) 0.5 mg IVP ONCE ONE Stop: 02/19/22 14:36 Last Admin: 02/19/22 14:44 Dose: 0.5 mg Nitroglycerin/Dextrose (Nitroglycerin Drip) Confirm Administered Dose 50 mg in 250 mls @ as directed .ROUTE .STK-MED ONE Stop: 02/19/22 15:02 Piperacillin Sod/Tazobactam (Sod 3.375 gm/ Sodium Chloride) 50 mls @ 12.5 mls/hr IV Q8H [facility] Last Admin: 02/19/22 19:27 Dose: Not Given Piperacillin Sod/Tazobactam (Sod 3.375 gm/ Sodium Chloride) 50 mls @ 12.5 mls/hr IV Q8H [facility] Last Infusion: 02/20/22 06:07 Dose: Infused Magnesium Sulfate (Magnesium Sulfate Premix) 2 gm in 50 mls @ 50 mls/hr IV ONCE ONE Stop: 02/20/22 01:18 Last Infusion: 02/20/22 02:16 Dose: Infused Iohexol (Iohexol 350 Mg/Ml 100 Ml Btl) 0 ml IV ONCE ONE Stop: 02/19/22 15:27 Last Admin: 02/19/22 14:54 Dose: 95 ml Lorazepam (Lorazepam 2 Mg Tablet) 2 mg PO ONCE ONE Stop: 02/20/22 23:52 Last Admin: 02/21/22 00:03 Dose: Not Given Lorazepam (Lorazepam 1 Mg Tablet) 2 mg PO ONCE ONE Stop: 02/21/22 00:01 Last Admin: 02/21/22 00:05 Dose: 2 mg Methylprednisolone Sodium Succinate (Methylprednisolone Sod Succ 125 Mg/2 Ml Inj) 125 mg IVP ONCE ONE Stop: 02/19/22 14:30 Last Admin: 02/19/22 14:34 Dose: 125 mg Metoprolol Tartrate (Metoprolol Tartrate 50 Mg Tablet) 50 mg PO DAILY [facility] Metoprolol Tartrate (Metoprolol Tartrate 50 Mg Tablet) 50 mg PO BID [facility] Last Admin: 02/20/22 08:25 Dose: 50 mg Morphine Sulfate (Morphine 4 Mg/Ml Sdv 1 Ml) 2 mg IVP Q4H PRN PRN Reason: SEVERE PAIN Pantoprazole Sodium (Pantoprazole 40 Mg Sdv) 40 mg IVP DAILY [facility] Allergies No Known Allergies Allergy (Unverified 02/19/22 16:09) Home Medications amlodipine 5 mg tablet 5 mg PO DAILY 02/19/22 [History Confirmed 02/19/22] aspirin 81 mg tablet,delayed release 81 mg PO DAILY 02/19/22 [History Confirmed 02/19/22] atorvastatin 80 mg tablet 80 mg PO BEDTIME 02/19/22 [History Confirmed 02/19/22] fenofibrate nanocrystallized 48 mg tablet 48 mg PO DAILY 02/19/22 [History Confirmed 02/19/22] furosemide 40 mg tablet 40 mg PO DAILY 02/19/22 [History Confirmed 02/19/22] insulin aspart U-100 100 unit/mL (3 mL) subcutaneous pen (Novolog Flexpen U-100 Insulin aspart) 15 unit SUBCUT TID 02/19/22 [History Confirmed 02/19/22] insulin degludec 200 unit/mL (3 mL) subcutaneous pen (Tresiba FlexTouch U-200 insulin) 50 unit SUBCUT DAILY 02/19/22 [History Confirmed 02/19/22] isosorbide mononitrate 120 mg tablet,extended release 24 hr 120 mg PO DAILY 02/19/22 [History Confirmed 02/19/22] levothyroxine 150 mcg tablet 150 mcg PO DAILY 02/19/22 [History Confirmed 02/19/22] lisinopril 20 mg tablet 20 mg PO BID 02/19/22 [History Confirmed 02/19/22] lorazepam 1 mg tablet 2 mg PO DAILY 02/19/22 [History Confirmed 02/19/22] metformin 1,000 mg tablet 1,000 mg PO BID 02/19/22 [History Confirmed 02/19/22] metoprolol tartrate 50 mg tablet 50 mg PO DAILY 02/19/22 [History Confirmed 02/19/22] nitroglycerin 0.4 mg sublingual tablet 0.4 mg sublingual Q5M PRN Chest Pain 02/19/22 [History Confirmed 02/19/22] potassium chloride 20 mEq tablet,extended release(part/cryst) 20 meq PO DAILY 02/19/22 [History Confirmed 02/19/22] prasugrel 10 mg tablet 10 mg PO DAILY 02/19/22 [History Confirmed 02/19/22] trazodone 100 mg tablet 100 mg PO DAILY 02/19/22 [History Confirmed 02/19/22] Discharge Plan Discharge Patient Disposition: Xfer Other Condition: Stable Prescriptions: No Action furosemide 40 mg tablet 40 mg PO DAILY atorvastatin 80 mg tablet 80 mg PO BEDTIME lisinopril 20 mg tablet 20 mg PO BID amlodipine 5 mg tablet 5 mg PO DAILY Aspir-81 81 mg Tablet,Delayed Release (Dr/Ec) 81 mg PO DAILY isosorbide mononitrate 120 mg tablet extended release 24 hr 120 mg PO DAILY potassium chloride 20 mEq tablet,ER particles/crystals 20 meq PO DAILY trazodone 100 mg tablet 100 mg PO DAILY metformin 1,000 mg tablet 1,000 mg PO BID levothyroxine 150 mcg tablet 150 mcg PO DAILY metoprolol tartrate 50 mg tablet 50 mg PO DAILY nitroglycerin 0.4 mg Tablet, Sublingual 0.4 mg SUBLINGUAL Q5M PRN (Reason: Chest Pain) Rx Instructions: do not exceed 3 doses per episode lorazepam 1 mg tablet 2 mg PO DAILY Novolog Flexpen U-100 Insulin 100 unit/mL (3 mL) insulin pen 15 unit SUBCUT TID fenofibrate nanocrystallized 48 mg tablet 48 mg PO DAILY prasugrel 10 mg tablet 10 mg PO DAILY Tresiba FlexTouch U-200 200 unit/mL (3 mL) insulin pen 50 unit SUBCUT DAILY Discharge Orders: Discharge Order (Routine); Ordered 02/21/22 Ordered By: Ha Duncan Referrals: Herrera Herzog DO [Primary Care Provider] - Discharge Diet: Cardiac Discharge Activity: Resume usual activity and Increase activity as tolerated Patient Instructions: Opioid Safety Transfer Attestations Time Spent in Transfer Care: critical care time (Goals of care discussion, cardiac system including chest pain, non-ST elevation FL, heart failure) Critical Care Time (min): 90 Specific Discharge Activities: educating patient, educating and/or supporting family/caregiver, discussing with pcp/other providers, discussing with telephonic nurse case manager/social workers/dc planners, documenting/other paperwork and evaluating patient/reviewing data Status at Transfer: Cognitive status at transfer: cognitively intact ; Behavioral status at transfer: cooperative ; Functional status at transfer: uses cane/walker ; Overall status at transfer: patient is not back to baseline Quality Metrics Clinical Quality Measures [ Acute Myocardial Infaction { Clinical Trial Participant: No; Contraindication to aspirin: None; Aspirin prescribed; Contraindication to statin: None; Statin prescribed; Contraindication to PCI: Refusal of treatment by patient; Contraindication to Fibrinolytics: None; fibrinolytics given}] Coding Level of Care Code 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
--- NOTE | 2022-02-21 11:13 | PC.NURSE ---
report called to [facility] for transfer at this time
[2022-02-21 11:26] LABS: Glucose Point of Care 187 mg/dL (70-110)
--- NOTE | 2022-02-21 12:36 | PC.NURSE ---
report given to [facility] [place] [facility] at this time urine bloody noted ... transfered to cot .
--- NOTE | 2022-02-21 12:37 | PC.NURSE ---
chest pain at level 4 ambulance crew called and Dr Gonzalez called orders for diladid .5 and ativan 1 mg if need enroute to [place]
[2022-02-26 16:13] LABS: Troponin 5 2HR Delta 96.2 ABS# (0-10)
== END 2022-02-21 12:15 | disposition short-term general hospital (02) | DRG 280 ==
LOC: ER 15:30 → ICU 16:29
PROVIDERS: Emergency Medicine; Student in an Organized Health Care Education/Training Program; Admitting Provider Student in an Organized Health Care Education/Training Program; Emergency Provider Emergency Medicine; PCP Family Medicine; Visit Provider Student in an Organized Health Care Education/Training Program
DX: I21.4 Non-ST elevation (NSTEMI) myocardial infarction (principal); I50.23 Acute on chronic systolic (congestive) heart failure; I25.10 Atherosclerotic heart disease of native coronary artery without angina pectoris; Z95.1 Presence of aortocoronary bypass graft; Z95.5 Presence of coronary angioplasty implant and graft; Z87.891 Personal history of nicotine dependence; I11.0 Hypertensive heart disease with heart failure; E78.5 Hyperlipidemia, unspecified; E89.0 Postprocedural hypothyroidism; Z88.5 Allergy status to narcotic agent; Z91.041 Radiographic dye allergy status; I44.7 Left bundle-branch block, unspecified; E11.9 Type 2 diabetes mellitus without complications; Z79.4 Long term (current) use of insulin; J44.9 Chronic obstructive pulmonary disease, unspecified; Z85.850 Personal history of malignant neoplasm of thyroid; Z79.84 Long term (current) use of oral hypoglycemic drugs; Z79.82 Long term (current) use of aspirin; I25.5 Ischemic cardiomyopathy
CPT/HCPCS: 36415; 36416; 51702; 71045; 71275; 80053; 80061; 80306; 81001; 82436; 82607; 82746; 82962; 83036; 83540; 83550; 83735; 83880; 84133; 84145; 84300; 84439; 84443; 84481; 84484; 85025; 85378; 86403; 87040; 87086; 87426; 87449; 87641; 87804; 93005; 93306; 94640; 94660; 94664; 96365; 96366; 96367; 96372; 96375; 99291; J1170; J1200; J1650; J1815; J1940; J2543; J2930; J3475; J3490; J7626; Q9967

== ENCOUNTER → 2022-06-03 09:55 | Outpatient (BNVA) | payer MEDICARE, SELFPAY | PROVIDERS: PCP Family Medicine; Visit Provider Family Medicine | DX: I50.9 Heart failure, unspecified (principal); R07.9 Chest pain, unspecified | CPT/HCPCS: 80048; 84484 ==

== ENCOUNTER 2023-01-10 08:09 | Outpatient (CLI) | payer MEDICARE, SELFPAY ==
[2023-01-10 09:11] LABS: Anion Gap 16.6 (5-19); Blood Urea Nitrogen 14 mg/dL (8-23); Calcium 8.4 mg/dL (8.5-10.5); Carbon Dioxide 22 mmol/L (22-29); Chloride 101 mmol/L (98-107); Glomerular Filtration Rate 66.2 mL/min (90-130); Glucose 100 mg/dL (65-115); NT Pro B Type Natriuretic Pept 1515 pg/mL (0-125); Osmolality Calculated 283 mOsm/kg (285-295); Potassium 3.6 mmol/L (3.5-5.1); Sodium 136 mmol/L (136-145)
== END 2023-01-10 08:10 | disposition home or self-care (01) ==
LOC: LAB 08:18
PROVIDERS: PCP Family Medicine; Visit Provider Family Medicine
DX: Z95.1 Presence of aortocoronary bypass graft (principal); I10 Essential (primary) hypertension
CPT/HCPCS: 36415; 80048; 83880

== ENCOUNTER 2023-04-08 06:33 | Emergency (ER) | payer MEDICARE, SELFPAY ==
--- NOTE | 2023-04-08 06:34 | XRR_ITS ---
PROCEDURE INFORMATION: Exam: XR Chest Exam date and time: 04/08/2023 7:20 AM Age: 72 years old Clinical indication: Pain; Angina pectoris; Additional info: Cp TECHNIQUE: Imaging protocol: Radiologic exam of the chest. Views: 1 view. COMPARISON: 1. CR XR chest 1V portable [id number] 02/19/2022 2:[address] angio chest PE protcl [id number] 02/19/2022 2:51 PM 3. CR XR shoulder RT min 2V* [id number] 02/14/2019 11:05 AM FINDINGS: Lungs: Bilateral mid to lower lung zone linear scarring versus subsegmental atelectasis similar to prior exams. No consolidation. Pleural spaces: Unremarkable. No pleural effusion. No pneumothorax. Heart/Mediastinum: Stable prominence of the cardiac silhouette. Multiple mediastinal surgical clips. Bones/joints: Multiple median sternotomy wires. Degenerative changes along the spine and shoulders. XR/XR chest 1V portable [id number] IMPRESSION: No acute findings.
--- NOTE | 2023-04-08 06:34 | ECG_ITS ---
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 Measurements Intervals [place] Rate: 106 P: 71 WI: 176 QRS: -11 QRSD: 113 T: 169 QT: 335 QTc: 445 Interpretive Statements SINUS TACHYCARDIA MODERATE INTRAVENTRICULAR CONDUCTION DELAY [110+ ms QRS DURATION] ST DEVIATION AND MODERATE T-WAVE ABNORMALITY, CONSIDER LATERAL ISCHEMIA [-0.1+ mV T-WAVE IN I/aVL/V5/V6] Compared to ECG 02/21/2022 00:35:55 Intraventricular conduction delay now present T-wave abnormality still present Possible ischemia still present Electronically Signed On 04-08-2023 19:00:24 CDT by Yadira Grant M.D. [id number] f
[2023-04-08 06:38] VITALS: BP 155/80; PULSE 118; RESP 20; TEMP 35.8; O2SAT 100; BMI 29.5
[2023-04-08] MEDS: ondansetron 2 mg/ML SDV 2 mL 4 MG IVP (06:52)
--- NOTE | 2023-04-08 06:53 | W.ED.CHESTPA ---
HPI - Chest Pain General: Chief Complaint: Chest Pain Stated Complaint: cp Time Seen by Provider: 04/08/23 06:35 Source: patient Mode of arrival: ambulatory Limitations: no limitations History of Present Illness: 72-year-old male has extensive history of coronary artery disease states he woke up at 3 AM with chest pain he states he had some chest pain since then as a pressure type pain in the center of his chest he had some diaphoresis denies any shortness of breath he rates his pain a 6 out of 10 currently did take nitro he had some relief with that he has had multiple procedures in the past he states that last year he had seen at [facility] along with [place] informed that they were not able to do any more procedures really at that time Associated symptoms: Deny abdominal pain, dyspnea, fever(s), nausea or vomiting Review of Systems Const: Denies: fever(s), chills, body aches or change in appetite ENMT: Denies: throat pain or dental pain Card: Reports: chest pain Resp: Denies: dyspnea GI: Denies: abdominal pain, nausea, vomiting or diarrhea : Denies: dysuria Musc: Denies: neck pain or back pain Skin/Breast: Denies: rash Neuro: Denies: headache(s) PFSH ED PFSH: Medical History (Updated 04/08/23 @ 09:39 by Jarrod Carlin MD) CAD (coronary artery disease) Congestive heart failure Hyperlipidemia Hypertension Insulin dependent diabetes mellitus Ischemic cardiomyopathy Surgical History (Updated 02/19/22 @ 17:18 by Ankit Thompson MD) History of hernia repair History of knee surgery History of thyroid surgery Status post coronary artery bypass graft Status post coronary artery stent placement Social History (Updated 02/19/22 @ 14:40 by Yohan Burch MD) Smoking and tobacco status: current every day smoker Alcohol intake: never Substance/Drug Use: never Physical Exam Const: COMMON NORMALS: patient oriented x3 HENMT: COMMON NORMALS: normocephalic and atraumatic HEAD & SCALP: normocephalic and atraumatic Eye: COMMON NORMALS: Equal, round and reactive pupils present and EOMs intact bilaterally PUPIL: Yes Equal, round and reactive pupils present Neck/C-Spine: COMMON NORMALS: full ROM and supple Chest: COMMONS NORMALS: normal inspection of the chest and normal palpation of entire chest wall Resp: COMMON NORMALS: normal respiratory effort, No retractions, No use of accessory muscles and clear to auscultation bilaterally AUSCULTATION: clear to auscultation bilaterally Cardio: COMMON NORMALS: regular rate, regular rhythm and No murmurs present (Cardio) RATE: regular rate RHYTHM: regular rhythm GI: COMMON NORMALS: Normal to inspection, nondistended, normoactive bowel sounds present, Soft to palpation, non-tender and no masses PALPATION: Yes Soft to palpation Extremity: COMMON NORMALS: normal to inspection and full ROM Neuro: COMMON NORMALS: patient oriented x3, moves all extremities and no focal motor deficits Psych: COMMON NORMALS: mental status grossly normal, Normal thought process present and cooperative THOUGHT PROCESS: Normal thought process present Skin: COMMON NORMALS: no rashes or lesions noted and no wounds GENERAL SKIN EXAM: no rashes or lesions noted Course Vital Signs: Vital signs: Vital Signs Temperature 96.4 F L 04/08/23 06:38 Pulse Rate 97 04/08/23 07:41 Respiratory Rate 20 H 04/08/23 07:41 Blood Pressure 118/64 04/08/23 07:41 Pulse Oximetry 96 04/08/23 07:41 Oxygen Delivery Me thod Room Air 04/08/23 06:38 MDM - Chest Pain Medical Decision Making Patient presents for chest pain his troponins here are normal he does have some worsening ST depression he is got extensive cardiac history states that his bankruptcy law specialist done cath last year and told him there was nothing else they could really do. He feels improved here he states that he wants to go home at this time as he has follow-up with his bankruptcy law specialist next week. I did inform if he has any worsening pain he is to return he understands agrees to plan. Medical Records I reviewed the patient's medical records. Lab Data I reviewed the patient's lab results. 04/08/23 06:41 04/08/23 06:41 Radiology Impressions Chest X-Ray 04/08/23 06:34 IMPRESSION: No acute findings. Laboratory Results WBC 11.60 10^3/uL (3.29-11.43) H 04/08/23 06:41 RBC 3.57 10^6/uL (3.85-5.65) L 04/08/23 06:41 Hgb 9.00 g/dL (11.27-16.99) L 04/08/23 06:41 Hct 29.5 % (37-53) L 04/08/23 06:41 MCV 82.6 fl (82-101) 04/08/23 06:41 MCH 25.2 pg (27-33) L 04/08/23 06:41 MCHC 30.5 g/dL (30-55) 04/08/23 06:41 RDW 22.2 % (12.1-15.1) H 04/08/23 06:41 Plt Count 442 10^3/cmm (157-399) H 04/08/23 06:41 MPV 8.7 fL (7.4-10.4) 04/08/23 06:41 Neut % (Auto) 68.3 % 04/08/23 06:41 Lymph % (Auto) 20.1 % 04/08/23 06:41 [place] % (Auto) 8.6 % 04/08/23 06:41 Eos % (Auto) 1.3 % 04/08/23 06:41 Baso % (Auto) 1.0 % 04/08/23 06:41 Neut # (Auto) 7.92 10^3/uL (1.8-7.7) H 04/08/23 06:41 Lymph # (Auto) 2.3 10^3/uL (0.8-4.8) 04/08/23 06:41 [place] # (Auto) 1.0 10^3/uL (0.2-0.9) H 04/08/23 06:41 Eos # (Auto) 0.2 10^3/uL (0.0-0.8) 04/08/23 06:41 Baso # (Auto) 0.1 10^3/uL (0.0-0.1) 04/08/23 06:41 Nucleated RBC % (auto) 0 % 04/08/23 06:41 Nucleated RBCs # 0.0 /100WBC 04/08/23 06:41 Sodium 136 mmol/L (136-145) 04/08/23 06:41 Potassium 4.5 mmol/L (3.5-5.1) 04/08/23 06:41 Chloride 100 mmol/L (98-107) 04/08/23 06:41 Carbon Dioxide 19 mmol/L (22-29) L 04/08/23 06:41 Anion Gap 21.5 (5-19) H 04/08/23 06:41 BUN 37 mg/dL (8-23) H 04/08/23 06:41 Creatinine 1.3 mg/dL (0.7-1.2) H 04/08/23 06:41 GFR Calculation 54.6 mL/min (90-130) L 04/08/23 06:41 Glucose 217 mg/dL (65-115) H 04/08/23 06:41 Calculated Osmolality 297 mOsm/kg (285-295) H 04/08/23 06:41 Calcium 9.6 mg/dL (8.5-10.5) 04/08/23 06:41 Total Bilirubin 0.2 mg/dL (0.15-1.2) 04/08/23 06:41 AST 15 U/L (0-40) 04/08/23 06:41 ALT 7 U/L (0-41) 04/08/23 06:41 Alkaline Phosphatase 43 U/L (40-130) 04/08/23 06:41 Troponin T Baseline 41 ng/L (0-15) H 04/08/23 06:41 Troponin T 120 Minute 40.93 ng/L (0-15) H 04/08/23 08:46 Delta Troponin T -0.07 ABS# (0-10) L 04/08/23 08:46 Total Protein 6.6 g/dL (6.6-8.7) 04/08/23 06:41 Albumin 4.5 g/dL (3.5-5.2) 04/08/23 06:41 Globulin 2.1 g/dL (1.3-4.6) 04/08/23 06:41 Lipase 69 U/L (13-60) H 04/08/23 06:41 All radiology interpretation(s) finalized by discharge Discharge Plan Discharge Patient Disposition: Home Clinical Impression: Chest pain Condition: Stable Prescriptions: New hydrocodone-acetaminophen 5-325 mg tablet 1 tab PO Q6H PRN (Reason: pain) Qty: 14 0RF No Action (DME) hydrofera blue ready See Rx Instructions .Route .MEDSUPPLY Qty: 5 0RF Rx Instructions: As directed, may use up to 7 days between dressing changes. (DME) hydrofera blue See Rx Instructions .Route .MEDSUPPLY Qty: 1 0RF Rx Instructions: As directed for wound care. 2cm ulceration Eliquis 5 mg tablet 5 mg PO BID Qty: 180 3RF spironolactone 25 mg tablet 25 mg PO DAILY Qty: 90 1RF nitroglycerin 0.4 mg tablet, sublingual See Rx Instructions .ROUTE .COMPLEX Qty: 20 5RF Dose Instruction: DISSOLVE 1 TABLET UNDER THE TONGUE EVERY 5 MINUTES NEEDED FOR CHEST PAIN. DO NOT EXCEED A TOTAL OF 3 DOSES IN 15 MINUTES. Rx Instructions: DISSOLVE 1 TABLET UNDER THE TONGUE EVERY 5 MINUTES NEEDED FOR CHEST PAIN. DO NOT EXCEED A TOTAL OF 3 DOSES IN 15 MINUTES. lorazepam 1 mg tablet 2 mg PO DAILY Qty: 60 5RF Novolog FlexPen U-100 Insulin 100 unit/mL (3 mL) insulin pen 15 unit SUBCUT TID Qty: 15 11RF Rx Instructions: PER SLIDING SCALE furosemide 40 mg tablet 40 mg PO DAILY atorvastatin 80 mg tablet 80 mg PO BEDTIME aspirin [Aspir-81] 81 mg Tablet,Delayed Release (Dr/Ec) 81 mg PO DAILY isosorbide mononitrate 120 mg tablet extended release 24 hr 120 mg PO DAILY potassium chloride 20 mEq tablet,ER particles/crystals 20 meq PO DAILY metformin 1,000 mg tablet 1,000 mg PO BID levothyroxine 150 mcg tablet 150 mcg PO DAILY fenofibrate nanocrystallized 48 mg tablet 48 mg PO DAILY prasugrel 10 mg tablet 10 mg PO DAILY insulin degludec [Tresiba FlexTouch U-200] 200 unit/mL (3 mL) insulin pen 40 unit SUBCUT DAILY metoprolol succinate 50 mg tablet extended release 24 hr 25 mg PO DAILY trazodone 100 mg tablet 100 mg PO BEDTIME PRN (Reason: Sleep) Jardiance 25 mg tablet 25 mg PO DAILY Entresto 24-26 mg Tablet 1 tab PO BID ranolazine 1,000 mg tablet extended release 12 hr 1,000 mg PO BID Discharge Orders: Discharge ED (Routine); Ordered 04/08/23 Ordered By: Jarrod Carlin Referrals: Herrera Herzog, [Primary Care Provider] - Discharge Diet: Advance as tolerated Discharge Activity: Resume usual activity Patient Instructions: Chest Pain (ED) Coding Level of Care Code ED 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
[2023-04-08] MEDS: HYDROmorphone 1 mg/mL INJ 1 mL 0.5 MG IVP ×2 (06:54→08:18)
[2023-04-08 06:59] LABS: Basophils # 0.1 10^3/uL (0.0-0.1); Eosinophils # 0.2 10^3/uL (0.0-0.8); Eosinophils % 1.3 %; Hematocrit 29.5 % (37-53); Lymphocytes # 2.3 10^3/uL (0.8-4.8); Lymphocytes % 20.1 %; Mean Corpuscular HGB Conc 30.5 g/dL (30-55); Mean Corpuscular Hemoglobin 25.2 pg (27-33); Mean Corpuscular Volume 82.6 fl (82-101); Mean Platelet Volume 8.7 fL (7.4-10.4); Monocytes % 8.6 %; Neutrophils # 7.92 10^3/uL (1.8-7.7); Neutrophils % 68.3 %; Nucleated Red Blood Cells % 0 %; Platelet Count 442 10^3/cmm (157-399); Red Blood Count 3.57 10^6/uL (3.85-5.65); Red Cell Distribution Width 22.2 % (12.1-15.1)
[2023-04-08 07:36] LABS: Troponin(5th) Baseline 41 ng/L (0-15)
[2023-04-08 07:39] LABS: Alanine Aminotransferase 7 U/L (0-41); Albumin Level 4.5 g/dL (3.5-5.2); Alkaline Phosphatase 43 U/L (40-130); Blood Urea Nitrogen 37 mg/dL (8-23); Calcium 9.6 mg/dL (8.5-10.5); Carbon Dioxide 19 mmol/L (22-29); Chloride 100 mmol/L (98-107); Globulin 2.1 g/dL (1.3-4.6); Glomerular Filtration Rate 54.6 mL/min (90-130); Glucose 217 mg/dL (65-115); Lipase 69 U/L (13-60); Osmolality Calculated 297 mOsm/kg (285-295); Sodium 136 mmol/L (136-145); Total Bilirubin 0.2 mg/dL (0.15-1.2); Total Protein 6.6 g/dL (6.6-8.7)
[2023-04-08 07:40] LABS: Anion Gap 21.5 (5-19); Aspartate Amino Transferase 15 U/L (0-40); Potassium 4.5 mmol/L (3.5-5.1)
[2023-04-08 07:41] VITALS: BP 118/64; PULSE 97; RESP 20; O2SAT 96
--- NOTE | 2023-04-08 08:34 | ECG_ITS ---
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 Measurements Intervals [place] Rate: 92 P: 52 [place]: 208 QRS: -9 QRSD: 106 T: 197 QT: 375 QTc: 464 Interpretive Statements SINUS RHYTHM LEFT VENTRICULAR HYPERTROPHY AND ST-T CHANGE [VOLTAGE CRITERIA PLUS ST/T ABNORMALITY] Compared to ECG 02/21/2022 00:35:55 Left ventricular hypertrophy now present ST (T wave) deviation now present Sinus tachycardia no longer present T-wave abnormality no longer present Possible ischemia no longer present Electronically Signed On 04-08-2023 19:17:56 CDT by Yadira Grant M.D. [id number]
[2023-04-08 09:17] LABS: Troponin 5 2HR 40.93 ng/L (0-15)
[2023-04-08 09:24] LABS: Troponin 5 2HR Delta -0.07 ABS# (0-10)
[2023-04-08 09:57] VITALS: BP 133/79; PULSE 103; RESP 18; O2SAT 100
== END 2023-04-08 09:58 | disposition home or self-care (01) ==
PROVIDERS: Emergency Provider Emergency Medicine; PCP Family Medicine
DX: R07.9 Chest pain, unspecified (principal); Z79.01 Long term (current) use of anticoagulants; Z79.4 Long term (current) use of insulin; Z79.82 Long term (current) use of aspirin; Z79.84 Long term (current) use of oral hypoglycemic drugs; I25.10 Atherosclerotic heart disease of native coronary artery without angina pectoris; I11.0 Hypertensive heart disease with heart failure; I50.9 Heart failure, unspecified; E78.5 Hyperlipidemia, unspecified; E11.9 Type 2 diabetes mellitus without complications; Z95.1 Presence of aortocoronary bypass graft; F17.210 Nicotine dependence, cigarettes, uncomplicated
CPT/HCPCS: 36415; 71045; 80053; 83690; 84484; 85025; 93005; 96374; 96375; 96376; 99285; J1170; J2405

== ENCOUNTER → 2023-05-26 14:11 | Outpatient (BNVA) | payer MEDICARE, SELFPAY | PROVIDERS: PCP Family Medicine; Visit Provider Internal Medicine | DX: I11.0 Hypertensive heart disease with heart failure (principal); I50.9 Heart failure, unspecified; I25.5 Ischemic cardiomyopathy; Z95.1 Presence of aortocoronary bypass graft; Z95.5 Presence of coronary angioplasty implant and graft; E78.5 Hyperlipidemia, unspecified; F17.200 Nicotine dependence, unspecified, uncomplicated | CPT/HCPCS: 99204 ==